=== PATIENT | male | born 1970 | race Caucasian/White ===

== ENCOUNTER 2016-09-16 09:34 | Emergency (ER) | payer MEDICARE, MEDICAID ==
--- NOTE | 2016-09-16 10:42 | ER Document Report ---
HPI - HPI Pain Level: 3 Context: 46 yo male c/o left rib pain. pt lost balance and fell between toilet and tub, hitting left side. hurts to breathe Associated Symptoms: None Exacerbated by: Movement, Deep breathing Relieved by: Denies - ROS Systems Reviewed and Negative: Yes All other systems reviewed and negative Past Medical History - General Information source: Patient - Social History Smoking Status: Never Smoker Frequency of alcohol use: None Drug Abuse: None Family History: Reviewed & Not Pertinent Patient has suicidal ideation: No Patient has homicidal ideation: No - Past Medical History Cardiac Medical History: Reports: Hx Hypercholesterolemia, Hx Hypertension Neurological Medical History: Reports: 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 IN LAST 30 DAYS: No - HEENT HEENT: Atraumatic, Normal ENT Exam, PERRLA - NECK Neck: Normal Inspection, Supple - RESPIRATORY Respiratory: Breath Sounds Normal, No Respiratory Distress, Other - + tenderness to left lateral chest wall. no echymosis.. negative: Rales, Rhonchi , Wheezing O2 Sat by Pulse Oximetry: 96 - CARDIOVASCULAR Cardiovascular: Regular Rate, Regular Rhythm - GI/ABDOMEN Gastrointestinal: Abdomen Soft, Abdomen Non-Tender - BACK Back: Normal Inspection, Abnormal Inspection - NEURO Level of Consciousness: Awake, Alert - DERM Integumentary: Warm, Dry Course - Re-evaluation Re-evalutation: 09/16/16 10:40 xrays are negative for fracture. results reviewed with patient and family. pt stable for discharge - Vital Signs Vital signs: Temp Pulse Resp BP Pulse Ox 97.8 F 70 20 130/81 H 96 09/16/16 09:36 09/16/16 09:36 09/16/16 09:36 09/16/16 09:36 09/16/16 09:36 Discharge - Discharge Clinical Impression: Contusion of rib on left side Qualifiers: Encounter type: initial encounter Qualified Code(s): S20.212A - Contusion of left front wall of thorax, initial encounter Instructions: Rib Contusion ([facility]), Ibuprofen (General) ([facility]), Warm Packs ([facility]) Additional Instructions: Your xrays are negative for fracture Take pain medications as prescribed Encourage deep breathing Follow up with your primary care for any increased pain, shortness of breath or fever Prescriptions: Ibuprofen [Motrin 800 Mg Tablet] 800 mg PO Q6H #20 tablet Referrals: ISRRAEL RUIZ MD [Primary Care Provider] - Follow up as needed
--- NOTE | 2016-09-16 10:48 | RADIOLOGY REPORT (SQ) ---
EXAM DESCRIPTION: RIBS LEFT W/PA CHEST COMPLETED DATE/TIME: 09/16/2016 10:34 am REASON FOR STUDY: fall, rib pain COMPARISON: Chest radiograph 09/27/2015 TECHNIQUE: Frontal view of the chest and additional views of the left ribs acquired. NUMBER OF VIEWS: Three view. LIMITATIONS: None. FINDINGS: FRONTAL CXR: No pneumothorax. No pleural effusion. No atelectasis or infiltrates. RIBS: No displaced rib fractures. No lytic or blastic bony lesions. OTHER: No other significant finding. IMPRESSION: NO PNEUMOTHORAX. NO DISPLACED RIB FRACTURES. COMMENT: SITE OF TRAUMA/COMPLAINT MARKED/STAMP COMPLETED: YES. TECHNICAL DOCUMENTATION: JOB ID: [id number] I [employer]- All Rights Reserved
[2016-09-16 11:00] VITALS: BP 132/78
== END 2016-09-16 10:55 | disposition home or self-care (01) ==
LOC: ER 09:34
DX: S20.212A Contusion of left front wall of thorax, initial encounter (principal); W19.XXXA Unspecified fall, initial encounter; Y92.002 Bathroom of unspecified non-institutional (private) residence as the place of occurrence of the external cause; I10 Essential (primary) hypertension; Z86.73 Personal history of transient ischemic attack (TIA), and cerebral infarction without residual deficits
CPT/HCPCS: 99283

== ENCOUNTER 2016-09-30 17:29 | Emergency (ER) | payer MEDICARE, MEDICAID, OTHER ==
[2016-09-30 17:46] VITALS: BP 111/86
--- NOTE | 2016-09-30 18:36 | ER Document Report ---
HPI - HPI Pain Level: Denies Notes: Patient is a 46-year-old male who presents to the ED complaining of a right- sided rash was back to his abdomen 1 day that is also painful and causes soreness in his back. Patient has a history of brain tumor status post excision as a child, CVAs, short-term memory loss, speech impairment, hypertension. Patient takes tramadol, blood thinner, blood pressure medication. He is accompanied to the ED by his mother. Mother states that he did have chickenpox as a child. He still eating and drink without any problems. Patient takes tramadol twice a day. The pain does not radiate. They have noticed that the rash is blistering with some clear discharge. Denies any headache, fever, URI, sore throat, chest pain, palpitations, syncope , cough, shortness of breath, wheezing, abdominal pain, nausea/vomiting/diarrhea , dysuria, hematuria, loss of control of bowel or bladder, urinary retention, muscle weakness/paralysis that is out of the ordinary. Allergies as listed above. No other significant medical history. - ROS Notes: REVIEW OF SYSTEMS: CONSTITUTIONAL : Denies fever, chills, or sweats. Denies recent illness. EENT: Denies eye, ear, throat, or mouth pain or symptoms. Denies nasal or sinus congestion or discharge. Denies throat, tongue, or mouth swelling or difficulty swallowing. CARDIOVASCULAR: Denies chest pain. Denies palpitations or racing or irregular heart beat. Denies ankle edema. RESPIRATORY: Denies cough, cold, or chest congestion. Denies shortness of breath, difficulty breathing, or wheezing. GASTROINTESTINAL: Denies abdominal pain or distention. Denies nausea, vomiting , or diarrhea. Denies blood in vomitus, stools, or per rectum. Denies black, tarry stools. Denies constipation. GENITOURINARY: Denies difficulty urinating, painful urination, burning, frequency, blood in urine, or discharge. MUSCULOSKELETAL: see hpi SKIN: see hpi NEUROLOGICAL: see hpi ALL OTHER SYSTEMS REVIEWED AND NEGATIVE. Dictation was performed using [employer] voice recognition software - CARDIOVASCULAR Cardiovascular: DENIES: Chest pain - DERM Skin Color: Normal Past Medical History - Social History Smoking Status: Never Smoker Chew tobacco use (# tins/day): No Frequency of alcohol use: None Drug Abuse: None Family History: Reviewed & Not Pertinent Patient has suicidal ideation: No Patient has homicidal ideation: No - Past Medical History Cardiac Medical History: Reports: Hx Hypercholesterolemia, Hx Hypertension Neurological Medical History: Reports: 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 HEAD: Atraumatic, normocephalic. EYES: Pupils equal round and reactive to light, extraocular movements intact, sclera anicteric, conjunctiva are normal. + dysconjugate gaze. ENT: EAC clear b/l. TM's intact b/l without erythema, fluid, or perforation. Nares patent and without discharge. oropharynx clear without exudates. No tonsilar hypertrophy or erythema. Moist mucous membranes. No sinus tenderness. NECK: Normal range of motion, supple without lymphadenopathy. No rigidity. LUNGS: Breath sounds clear to auscultation bilaterally and equal. No wheezes rales or rhonchi. HEART: Regular rate and rhythm without murmurs, rubs, gallops. ABDOMEN: Soft, nontender, nondistended abdomen. No guarding, no rebound. No masses appreciated. Normal bowel sounds present. No CVA tenderness bilaterally. Musculoskeletal: FROM to passive/active. Strength 5+/5. Back: + grouped vesicular rash, erythemic base, clear discharge, unilateral, along approx dermatome T7-8. + tenderness. Wraps around to the abdomen along same dermatome. SLR negative. Extremities: No cyanosis, clubbing, or edema b/l. Peripheral pulses 2+. Capillary refill less than 3 seconds. NEUROLOGICAL: Cranial nerves grossly intact. Normal speech, normal gait. Normal sensory, motor exams PSYCH: Normal mood, normal affect. SKIN: see "Back exam"--consistent with shingles rash - INFECTION CONTROL TRAVEL OUTSIDE OF THE [place] IN LAST 30 DAYS: No - RESPIRATORY O2 Sat by Pulse Oximetry: 94 Course - Re-evaluation Re-evalutation: 09/30/16 18:42 Patient is an afebrile, well-hydrated, 46-year-old male presents the ED with a shingles rash to his right back/abdomen along dermatome T7-8 approximately. Vitals are stable. PE otherwise unremarkable for any focal neurological deficits. Low suspicion for any AAA, cauda equina, spinal abscess, herniated disc causing severe spinal stenosis based on H&P today. I will send him home with Valtrex 1 g 3 times daily 7 days. Conservative measures for symptoms otherwise. Keep the wound covered. Recheck with her PCM in 2-3 days. Return to the ED with any worsening/concerning symptoms otherwise as reviewed in discharge. Patient/mother in agreement with plan. - Vital Signs Vital signs: Temp Pulse Resp BP Pulse Ox 98 F 88 18 111/86 H 94 09/30/16 17:39 09/30/16 17:39 09/30/16 17:39 09/30/16 17:39 09/30/16 17:39 Discharge - Discharge Clinical Impression: Shingles outbreak Qualifiers: Herpes zoster complications: without complications Qualified Code(s): B02.9 - Zoster without complications Condition: Stable Disposition: HOME, SELF-CARE Instructions: Acetaminophen Additional Instructions: Keep the skin clean and covered Take valtrex every 8 hours for 7 days May use his tramadol for pain control tylenol may help avoid being around females Maintain fluid intake Recheck with PCM in 2-3 days Return to the ED with any worsening symptoms and/or development of fever, headache, chest pain, palpitations, syncope, shortness of breath, trouble breathing, abdominal pain, n/v/d, blood in stool/urine, loss of control of bowel /bladder, urinary retention, muscle weakness/paralysis, numbness/tingling, or other worsening symptoms that are concerning to you. Shingles You have shingles. Shingles is caused by the chicken pox virus, The virus has been surviving dormant in a nerve cell since you had chicken pox years ago. The virus has spread down a nerve root to reach the skin. Typically, an band-like area of pain and skin sensitivity develops, then small blisters erupt in the area. Shingles lasts two or three weeks, but sometimes leaves persistent pain. You are contagious -- you can give children chicken pox. But you can't give anyone shingles. Antiviral medicines (such as acyclovir or famciclovir) can help, but the rash usually worsens for about a week. Pain medication is often given if the area hurts. Antihistamines such as Benadryl may be necessary for itching if it does not respond to soda baths and calamine lotion. Sometimes cortisone medicine or nerve-block shots are necessary if pain is severe. If the area remains severely painful as the sores heal, or if you suspect an infection developing in the sores, see your doctor. Prescriptions: Valacyclovir HCl [Valacyclovir] 1,000 mg PO TID #21 tablet Referrals: ZHENG FLORES MD [Primary Care Provider] - Follow up as needed
== END 2016-09-30 18:57 | disposition home or self-care (01) ==
LOC: ER 17:29
DX: B02.9 Zoster without complications (principal); I10 Essential (primary) hypertension; Z86.73 Personal history of transient ischemic attack (TIA), and cerebral infarction without residual deficits; Z79.891 Long term (current) use of opiate analgesic; Z79.899 Other long term (current) drug therapy; Z79.01 Long term (current) use of anticoagulants
CPT/HCPCS: 99283

== ENCOUNTER → 2017-04-09 | Outpatient (CLI) | payer MEDICARE, MEDICAID | LOC: RAD 12:18 | PROVIDERS: ATTEND Internal Medicine | DX: G81.92 Hemiplegia, unspecified affecting left dominant side (principal) ==

== ENCOUNTER → 2017-04-13 | Outpatient (CLI) | payer MEDICARE, MEDICAID ==
--- NOTE | 2017-04-13 11:00 | RADIOLOGY REPORT (SQ) ---
EXAM DESCRIPTION: CT HEAD WITHOUT COMPLETED DATE/TIME: 04/13/2017 10:37 am REASON FOR STUDY: CEREBRAL INFRACTION, UNSPECIFIED COMPARISON: 04/30/2015 TECHNIQUE: Axial images acquired through the brain without intravenous contrast. Images reviewed wi th bone, brain and subdural windows. Images stored on PACS. LIMITATIONS: None. FINDINGS: VENTRICLES: Stable in size and contour with right frontal ventriculostomy catheter in plac e. CEREBRUM: No masses. No hemorrhage. No midline shift. Normal lewis/white matter differentiation. S table areas of chronic microvascular ischemic disease involving the right greater than left basal diomedes glia. Stable dense basal gangliar calcifications. No evidence for acute infarction. CEREBELLUM: No masses. No hemorrhage. No alteration of density. No evidence for acute infarction. EXTRAAXIAL SPACES: No fluid collections. No masses. ORBITS AND GLOBE: No intra- or extraconal masses. Normal contour of globe without masses. CALVARIUM: No fracture. Stable postsurgical change related to ventriculostomy catheter placement PARANASAL SINUSES: No fluid or mucosal thickening. SOFT TISSUES: No mass or hematoma. OTHER: No other significant finding. IMPRESSION: NO ACUTE INTRACRANIAL PROCESS. NO SIGNIFICANT CHANGE FROM PRIOR STUDY. COMMENT: WAS EXAM PERFORMED WITHIN 24 HOURS UPON ARRIVAL TO FACILITY? Yes. TECHNICAL DOCUMENTATION: JOB ID: [id number]
== END ==
LOC: RAD 10:23
PROVIDERS: ATTEND Internal Medicine
DX: I63.9 Cerebral infarction, unspecified (principal)
CPT/HCPCS: 70450

== ENCOUNTER 2017-08-12 14:01 | Emergency (ER) | payer MEDICARE, MEDICAID ==
--- NOTE | 2017-08-12 16:07 | ER Document Report ---
ED Medical Screen (RME) - General Chief Complaint: S/S of Possible Stroke Stated Complaint: POSSIBLE STROKE Time Seen by Provider: 08/12/17 16:00 Notes: RAPID MEDICAL EVALUATION DISCLOSURE I have seen this patient as part of a Rapid Medical Evaluation and, if applicable, placed any initially appropriate orders. The patient will be seen and fully evaluated, including a full history and physical exam, by a provider ( in Main ED or Fast Track) when a room becomes available. 47-year-old male PMH brain tumor (status post resection) here with mother who states he was at therapy approximately 2 hours 45 minutes ago when they noticed he had right-sided facial droop and slurred speech as well as difficulty walking and leg weakness. Mother states he does not normally have these symptoms at baseline. Since then, he has had a waxing/waning of the symptoms. Mother states that he currently does not have the facial droop but does currently have some slurred speech. EXAM Slurred speech noted No facial droop Left upper extremity motor weakness (mother states is baseline) All other extremities 5/5 strength TRAVEL OUTSIDE OF THE [place] IN LAST 30 DAYS: No - Related Data Allergies/Adverse Reactions: GOLDY Inhibitors Allergy (Verified 09/30/16 18:06) angioedema Past Medical History - Social History Chew tobacco use (# tins/day): No Frequency of alcohol use: None Drug Abuse: None - Past Medical History Cardiac Medical History: Reports: Hx Hypercholesterolemia, Hx Hypertension Neurological Medical History: Reports: 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
--- NOTE | 2017-08-12 16:28 | RADIOLOGY REPORT (SQ) ---
EXAM DESCRIPTION: CHEST SINGLE VIEW COMPLETED DATE/TIME: 08/12/2017 4:19 pm REASON FOR STUDY: slurred speech COMPARISON: 09/27/2015 EXAM PARAMETERS: NUMBER OF VIEWS: One view. TECHNIQUE: Single frontal radiographic view of the chest acquired. RADIATION DOSE: NA LIMITATIONS: None. FINDINGS: LUNGS AND PLEURA: No opacities, masses or pneumothorax. No pleural effusion. MEDIASTINUM AND HILAR STRUCTURES: No masses. Contour normal. HEART AND VASCULAR STRUCTURES: Heart normal in size. Normal vasculature. BONES: No acute findings. HARDWARE: None in the chest. OTHER: Shunt catheter right of midline. IMPRESSION: NO ACUTE RADIOGRAPHIC FINDING IN THE CHEST. TECHNICAL DOCUMENTATION: JOB ID: [id number] [employer]- All Rights Reserved Reading location - IP/workstation name: [email or web address]
--- NOTE | 2017-08-12 16:44 | RADIOLOGY REPORT (SQ) ---
EXAM DESCRIPTION: CT HEAD WITHOUT COMPLETED DATE/TIME: 08/12/2017 4:14 pm REASON FOR STUDY: slurred speech COMPARISON: 04/13/2017 TECHNIQUE: Axial images acquired through the brain without intravenous contrast. Images reviewed wi th bone, brain and subdural windows. Additional sagittal and coronal reconstructions were generated. Images stored on PACS. All CT scanners at this facility use dose modulation, iterative reconstruction, and/or weight based d osing when appropriate to reduce radiation dose to as low as reasonably achievable (ALARA). [facility]: Dose Right [facility]: CareDose [facility]: Dose Right [facility]: Teradose 4D [facility]: Smart Egodeus RADIATION DOSE: CT Rad equipment meets quality standard of care and radiation dose reduction techniq ues were employed. CTDIvol: 53.2 mGy. DLP: 1070 mGy-cm. mGy. LIMITATIONS: None. FINDINGS: VENTRICLES: The ventricles remain stable in size and contour. Ventricular shunt catheter is unchanged in position. CEREBRUM: No masses. No hemorrhage. No midline shift. No evidence for acute infarction. Normal gra y/white matter differentiation. There are relative low density areas in the periventricular white ma tter which may be related to small vessel ischemic changes. Stable basal ganglia calcifications are again identified. Postsurgical changes are identified at the level of the left temporal lobe without significant mass effect. CEREBELLUM: No masses. No hemorrhage. No alteration of density. No evidence for acute infarction. EXTRAAXIAL SPACES: No fluid collections. No masses. ORBITS AND GLOBE: No intra- or extraconal masses. Normal contour of globe without masses. CALVARIUM: Post craniotomy changes are identified in the left temporal region which were not present on the previous study PARANASAL SINUSES: No fluid or mucosal thickening. SOFT TISSUES: There is soft tissue swelling in the scalp on the left presumably postsurgical in natur e. OTHER: No other significant finding. IMPRESSION: Postsurgical changes in the left temporal region without significant mass effect. Stabl e ventricles with a ventricular shunt catheter unchanged in position. No hemorrhage no midline shift . Relative low density areas in the periventricular white matter which may be related to small vesse l ischemic changes. Other findings as noted above EVIDENCE OF ACUTE STROKE: NO. COMMENT: Pertinent positive or negative findings of the imaging study reported as a CRITICAL EXAM rubén WONG MD at16:18 on 08/12/2017. Category of Critical Exam: Stroke alert Quality ID # [id number]: Final reports with documentation of one or more dose reduction techniques (e.g., Au tomated exposure control, adjustment of the mA and/or kV according to patient size, use of iterative reconstruction technique) TECHNICAL DOCUMENTATION: JOB ID: [id number] [employer]- All Rights Reserved Reading location - IP/workstation name: [email or web address]
[2017-08-12 17:52] LABS: ABSOLUTE LYMPHOCYTES (AUTO) 0.4 10^3/uL (0.5-4.7); ABSOLUTE MONOCYTES (AUTO) 0.1 10^3/uL (0.1-1.4); ABSOLUTE NEUT (AUTO) 5.5 10^3/uL (1.7-8.2); BASOPHILS % (AUTO) 0.1 % (0-2); EOSINOPHILS % (AUTO) 0.2 % (0-6); HEMATOCRIT 37.9 % (37.9-51.0); HEMOGLOBIN 12.9 g/dL (13.5-17.0); LYMPHOCYTES % (AUTO) 6.5 % (13-45); MEAN CORPUSCULAR HEMOGLOBIN 31.6 pg (27.0-33.4); MEAN CORPUSCULAR HGB CONC 33.9 g/dL (32.0-36.0); MEAN CORPUSCULAR VOLUME 93 fl (80-97); MONOCYTES % (AUTO) 2.2 % (3-13); PLATELET COUNT 161 10^3/uL (150-450); RED BLOOD COUNT 4.06 10^6/uL (4.35-5.55); RED CELL DISTRIBUTION WIDTH 14.8 % (11.5-14.0); TOTAL CELLS COUNTED % (AUTO) 100 %; WHITE BLOOD COUNT 6.1 10^3/uL (4.0-10.5)
[2017-08-12 17:56] LABS: INTERNATIONAL RATION (INR) 0.89; PROTHROMBIN TIME 12.5 SEC (11.4-15.4)
[2017-08-12 17:57] LABS: PARTIAL THROMBOPLASTIN TIME 31.7 SEC (23.5-35.8)
--- NOTE | 2017-08-12 18:08 | EKG REPORT ---
SEVERITY:- BORDERLINE ECG - SINUS RHYTHM LVH BY VOLTAGE : Confirmed by: Alexandru Bush MD 12-Aug-2017 18:07:06
[2017-08-12 18:11] LABS: ALANINE AMINOTRANSFERASE 64 U/L (21-72); ALBUMIN 3.8 g/dL (3.5-5.0); ALKALINE PHOSPHATASE 93 U/L (38-126); ANION GAP 11 (5-19); ASPARTATE AMINO TRANSFERASE 28 U/L (17-59); BILIRUBIN,DIRECT 0.2 mg/dL (0.0-0.4); BILIRUBIN,TOTAL 0.6 mg/dL (0.2-1.3); BLOOD UREA NITROGEN 11 mg/dL (7-20); CALCIUM 8.9 mg/dL (8.4-10.2); CARBON DIOXIDE 34 mmol/L (22-30); CHLORIDE 100 mmol/L (98-107); CREATINE KINASE 43 U/L (55-170); GLUCOSE 123 mg/dL (75-110); SODIUM 144.7 mmol/L (137-145); TOTAL PROTEIN 6.5 g/dL (6.3-8.2)
[2017-08-12] MEDS ORDERED: NORMAL SALINE 1000 ML 1,000 ML IV ONE (18:15)
--- NOTE | 2017-08-12 18:15 | ER Document Report ---
ED General - General Mode of Arrival: Ambulatory Information source: Patient TRAVEL OUTSIDE OF THE [place] IN LAST 30 DAYS: No <ERWIN GARDNER - Last Filed: 08/12/17 22:43> <ELI AHMADI - Last Filed: 08/12/17 23:52> - General Chief Complaint: S/S of Possible Stroke Stated Complaint: POSSIBLE STROKE Time Seen by Provider: 08/12/17 16:00 Notes: Patient is a 47-year-old male that presents to the emergency department today with complaints of generalized weakness. Mother at bedside states the patient was at physical therapy today and was "having difficulty walking". Mom states patient has had recent falls at home. Patient had a recent craniotomy secondary to a benign tumor. Patient denies feeling sick, hip pain, vomiting, diarrhea, urinary symptoms, or cough. (ERWIN GARDNER) - Related Data Allergies/Adverse Reactions: GOLDY Inhibitors Allergy (Verified 09/30/16 18:06) angioedema Past Medical History - General Information source: Patient - Social History Smoking Status: Never Smoker Cigarette use (# per day): No Chew tobacco use (# tins/day): No Frequency of alcohol use: None Drug Abuse: None Lives with: Family Family History: Reviewed & Not Pertinent Patient has suicidal ideation: No Patient has homicidal ideation: No - Past Medical History Cardiac Medical History: Reports: Hx Hypercholesterolemia, Hx Hypertension Neurological Medical History: Reports: 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 - Immunizations Hx Diphtheria, Pertussis, Tetanus Vaccination: Yes <ERWIN GARDNER - Last Filed: 08/12/17 22:43> Review of Systems - Review of Systems Constitutional: See HPI, Weakness EENT: No symptoms reported Cardiovascular: No symptoms reported Respiratory: denies: Cough Gastrointestinal: denies: Abdominal pain, Diarrhea, Vomiting Genitourinary: No symptoms reported Male Genitourinary: No symptoms reported Musculoskeletal: No symptoms reported Skin: No symptoms reported Hematologic/Lymphatic: No symptoms reported Neurological/Psychological: No symptoms reported -: Yes All other systems reviewed and negative <ERWIN GARDNER - Last Filed: 08/12/17 22:43> Physical Exam - Vital signs Interpretation: Hypotensive - General General appearance: Alert In distress: None - HEENT Head: Other - Healing wound to L scalp, CDI Nasal: Normal Mucous membranes: Dry Pharynx: Normal Neck: Normal - Respiratory Respiratory status: No respiratory distress Breath sounds: Normal - Cardiovascular Rhythm: Regular - Abdominal Inspection: Normal Tenderness: Nontender - Extremities General upper extremity: Normal inspection, Normal strength General lower extremity: Normal inspection, Normal strength - Neurological Neuro grossly intact: Yes - at baseline Andrews Coma Scale Eye Opening: Spontaneous Andrews Coma Scale Verbal: Oriented Speech: Normal Motor strength normal: LUE - decreased at baseline, RUE, LLE - decreased at baseline, RLE Additional motor exam normals: Other - L at baseline weakness - Psychological Associated symptoms: Normal affect, Normal mood - Skin Skin Temperature: Warm Skin Moisture: Dry Skin Color: Normal <ELI AHMADI - Last Filed: 08/12/17 23:52> - Vital signs Vitals: Temp Pulse Resp BP Pulse Ox 98.7 F 86 18 100/66 95 08/12/17 14:26 08/12/17 14:26 08/12/17 14:26 08/12/17 14:26 08/12/17 14:26 Course - Laboratory Result Diagrams: 08/12/17 17:40 08/12/17 17:40 <ERWIN GARDNER - Last Filed: 08/12/17 22:43> - Laboratory Result Diagrams: 08/12/17 17:40 08/12/17 17:40 - Diagnostic Test Radiology reviewed: Reports reviewed <ELI AHMADI - Last Filed: 08/12/17 23:52> - Re-evaluation Re-evalutation: 08/12/17 23:49 Patient is a 47-year-old male who comes in with feeling like he might fall over. Patient had a craniotomy in March. There is no evidence on his CT for bleeding, new stroke, or hydrocephalus. No acute findings on blood work or urine. No acute findings on chest x-ray. Patient was given fluids and is no longer orthostatic. Mother states that he is having physical therapy come in because of difficulty walking and being off balance. This is at his baseline since he had the surgery. I am not sure if they understand that the patient is going to have difficulty walking for quite some time due to the removal of a benign brain tumor. Patient does not meet any admission criteria and is able to ambulate at baseline with assistance which she has at home. Patient will be discharged home. Return if any worsening or concerning symptoms. (ELI AHMADI) - Vital Signs Vital signs: Temp Pulse Resp BP Pulse Ox 98.7 F 65 18 110/78 95 08/12/17 14:26 08/12/17 22:09 08/12/17 23:01 08/12/17 23:01 08/12/17 23:01 - Laboratory Laboratory results interpreted by me: 08/12/17 08/12/17 17:40 17:40 RBC 4.06 L Hgb 12.9 L RDW 14.8 H Seg Neutrophils % 91.0 H Lymphocytes % 6.5 L Monocytes % 2.2 L Absolute Lymphocytes 0.4 L Carbon Dioxide 34 H Glucose 123 H Creatine Kinase 43 L Discharge <ERWIN GARDNER - Last Filed: 08/12/17 22:43> <ELI AHMADI - Last Filed: 08/12/17 23:52> - Discharge Clinical Impression: Weakness, Dehydration Condition: Stable Disposition: HOME, SELF-CARE Instructions: Dehydration ([facility]), Weakness ([facility]) Referrals: CARLY WILLIAMSON MD [Primary Care Provider] - Follow up tomorrow Scribe Attestation: 08/12/17 23:52 I personally performed the services described in the documentation, reviewed and edited the documentation which was dictated to the scribe in my presence, and it accurately records my words and actions. (ELI AHMADI) Scribe Documentation - Scribe Written by Belia:: Belia Senior, 08/12/2017 2251 acting as scribe for :: June <ERWIN GARDNER - Last Filed: 08/12/17 22:43>
[2017-08-12 18:25] LABS: CREATINE KINASE MB 0.79 ng/mL (<4.55)
[2017-08-12 18:26] LABS: TROPONIN I < 0.012 ng/mL
[2017-08-12 20:37] LABS: AMORPHOUS SEDIMENT,URINE TRACE /HPF; APPEARANCE,URINE CLOUDY; BILIRUBIN,URINE NEGATIVE (NEGATIVE); COLOR,URINE YELLOW; GLUCOSE, URINE NEGATIVE (NEGATIVE); KETONES,URINE NEGATIVE (NEGATIVE); LEUKOCYTE ESTERASE,URINE NEGATIVE (NEGATIVE); NITRITE,URINE NEGATIVE (NEGATIVE); PROTEIN,URINE NEGATIVE (NEGATIVE); UROBILINOGEN,URINE NEGATIVE mg/dL (<2.0)
[2017-08-12 23:05] VITALS: BP 110/78
== END 2017-08-12 23:13 | disposition home or self-care (01) ==
LOC: ER 14:01
DX: R53.1 Weakness (principal); E86.0 Dehydration; R26.2 Difficulty in walking, not elsewhere classified; I10 Essential (primary) hypertension; Z91.81 History of falling; Z98.2 Presence of cerebrospinal fluid drainage device; Z98.890 Other specified postprocedural states; Z88.8 Allergy status to other drugs, medicaments and biological substances; Z86.73 Personal history of transient ischemic attack (TIA), and cerebral infarction without residual deficits
CPT/HCPCS: 93005; 99285; 96360; 36415; 82553; 82550; 85025; 85610; 85730; 80053; 81001; 84484; 71045; 70450; 93010; J7030

== ENCOUNTER 2017-09-19 13:03 | Emergency (ER) | payer MEDICARE, MEDICAID ==
[2017-09-19] MEDS ORDERED: ACETAMINOPHEN 325 MG TABLET PO ONE (14:00)
[2017-09-19] MEDS ORDERED: ONDANSETRON 4 MG TAB.RAPDIS PO ONE (14:00)
--- NOTE | 2017-09-19 14:02 | ER Document Report ---
ED Medical Screen (RME) - General Chief Complaint: Flank Pain Stated Complaint: STOMACH/FLANK PAIN Time Seen by Provider: 09/19/17 13:58 Notes: RAPID MEDICAL EVALUATION DISCLOSURE I have seen this patient as part of a Rapid Medical Evaluation and, if applicable, placed any initially appropriate orders. The patient will be seen and fully evaluated, including a full history and physical exam, by a provider ( in Main ED or Fast Track) when a room becomes available. 47-year-old male here with complaints of right-sided abdominal and flank pain ongoing for the past 1-2 days. He has had some nausea but no dysuria hematuria diarrhea fevers chills. Mother gave him some tramadol for the pain with not much relief. He has no prior history of kidney stones. Mother is unsure if he still has his appendix. Exam Mild RUQ TTP Moderate RLQ TTP No CVA TTP TRAVEL OUTSIDE OF THE [place] 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
[2017-09-19 14:32] LABS: ABSOLUTE EOSINOPHILS # (AUTO) 0.1 10^3/uL (0.0-0.6); ABSOLUTE LYMPHOCYTES (AUTO) 1.5 10^3/uL (0.5-4.7); ABSOLUTE MONOCYTES (AUTO) 0.6 10^3/uL (0.1-1.4); ABSOLUTE NEUT (AUTO) 5.2 10^3/uL (1.7-8.2); BASOPHILS % (AUTO) 0.6 % (0-2); EOSINOPHILS % (AUTO) 1.6 % (0-6); HEMATOCRIT 40.2 % (37.9-51.0); LYMPHOCYTES % (AUTO) 20.2 % (13-45); MEAN CORPUSCULAR HEMOGLOBIN 31.2 pg (27.0-33.4); MEAN CORPUSCULAR HGB CONC 34.8 g/dL (32.0-36.0); MEAN CORPUSCULAR VOLUME 90 fl (80-97); MONOCYTES % (AUTO) 7.8 % (3-13); PLATELET COUNT 259 10^3/uL (150-450); RED BLOOD COUNT 4.48 10^6/uL (4.35-5.55); RED CELL DISTRIBUTION WIDTH 14.7 % (11.5-14.0); SEGMENTED NEUTROPHILS % (AUTO) 69.8 % (42-78); TOTAL CELLS COUNTED % (AUTO) 100 %; WHITE BLOOD COUNT 7.5 10^3/uL (4.0-10.5)
[2017-09-19 14:53] LABS: APPEARANCE,URINE SLIGHTLY-CLOUDY; BILIRUBIN,URINE NEGATIVE (NEGATIVE); COLOR,URINE STRAW; GLUCOSE, URINE NEGATIVE (NEGATIVE); KETONES,URINE NEGATIVE (NEGATIVE); LEUKOCYTE ESTERASE,URINE NEGATIVE (NEGATIVE); NITRITE,URINE NEGATIVE (NEGATIVE); PROTEIN,URINE NEGATIVE (NEGATIVE); URINE SPECIFIC GRAVITY 1.002; UROBILINOGEN,URINE NEGATIVE mg/dL (<2.0)
[2017-09-19 14:55] LABS: ALANINE AMINOTRANSFERASE 60 U/L (21-72); ALBUMIN 4.4 g/dL (3.5-5.0); ALKALINE PHOSPHATASE 74 U/L (38-126); ANION GAP 10 (5-19); ASPARTATE AMINO TRANSFERASE 50 U/L (17-59); BILIRUBIN,DIRECT 0.3 mg/dL (0.0-0.4); BILIRUBIN,TOTAL 0.6 mg/dL (0.2-1.3); BLOOD UREA NITROGEN 8 mg/dL (7-20); CALCIUM 9.5 mg/dL (8.4-10.2); CARBON DIOXIDE 34 mmol/L (22-30); CHLORIDE 105 mmol/L (98-107); GLUCOSE 125 mg/dL (75-110); LIPASE 66.6 U/L (23-300); POTASSIUM 3.2 mmol/L (3.6-5.0); SODIUM 149.3 mmol/L (137-145); TOTAL PROTEIN 7.7 g/dL (6.3-8.2)
--- NOTE | 2017-09-19 15:04 | RADIOLOGY REPORT (SQ) ---
EXAM DESCRIPTION: CT ABD/PELVIS NO ORAL OR IV COMPLETED DATE/TIME: 09/19/2017 2:39 pm REASON FOR STUDY: RLQ/RUQ pain; eval stone appendicitis etc COMPARISON: None. TECHNIQUE: CT scan of the abdomen and pelvis performed without intravenous or oral contrast. Images reviewed with lung, soft tissue, and bone windows. Reconstructed coronal and sagittal MPR images revi ewed. All images stored on PACS. All CT scanners at this facility use dose modulation, iterative reconstruction, and/or weight based d osing when appropriate to reduce radiation dose to as low as reasonably achievable (ALARA). [facility]: Dose Right [facility]: CareDose [facility]: Dose Right [facility]: Teradose 4D [facility]: Smart [employer] RADIATION DOSE: CT Rad equipment meets quality standard of care and radiation dose reduction techniq ues were employed. CTDIvol: 18.2 mGy. DLP: 1053 mGy-cm.mGy. LIMITATIONS: None. FINDINGS: LOWER CHEST: No significant findings. No nodules or infiltrates. NON-CONTRASTED LIVER, SPLEEN, ADRENALS: Evaluation limited by lack of IV contrast. No identified sign ificant masses. PANCREAS: No masses. No peripancreatic inflammatory changes. GALLBLADDER: No identified stones by CT criteria. No inflammatory changes to suggest cholecystitis. RIGHT KIDNEY AND URETER: No suspicious masses. Assessment limited by lack of IV contrast. No signif icant calcifications. No hydronephrosis or hydroureter. LEFT KIDNEY AND URETER: No suspicious masses. Assessment limited by lack of IV contrast. No signifi cant calcifications. No hydronephrosis or hydroureter. AORTA AND RETROPERITONEUM: No aneurysm. No retroperitoneal masses or adenopathy. BOWEL AND PERITONEAL CAVITY: No obvious masses or inflammatory changes. No free fluid. APPENDIX: For the most part the appendix is normal caliber and there are few bubbles of gas within th e appendiceal lumen. However, adjacent to the appendix is the distal end of the STOPPER GRINDER shunt tubing and associated with the tubing is increased density in the mesenteric and periappendiceal soft tissues. PELVIS, BLADDER, AND ABDOMINAL WALL:No abnormal masses. No free fluid. Bladder normal. BONES: No significant findings. OTHER: No other significant finding. IMPRESSION: 1. THERE IS INFLAMMATORY CHANGE IN THE SOFT TISSUES ADJACENT TO THE APPENDIX. HOWEVER, THIS IS ALSO ADJACENT TO THE DISTAL END OF THE STOPPER GRINDER SHUNT TUBING. THIS COULD REPRESENT EARLY APPENDICITIS AND INCID ENTAL PRESENCE OF TUBING ADJACENT TO THE APPENDIX. ON THE OTHER HAND, THIS COULD REPRESENT FOCAL ACU TE OR CHRONIC INFLAMMATION RELATED TO THE TUBING. CANNOT ENTIRELY EXCLUDE POSSIBILITY OF EARLY ACUTE APPENDICITIS. 2. NO OTHER SIGNIFICANT OR ACUTE PROCESS IN THE ABDOMEN OR PELVIS. COMMENT: Quality ID # [id number]: Final reports with documentation of one or more dose reduction techniques (e.g., Automated exposure control, adjustment of the mA and/or kV according to patient size, use of iterative reconstruction technique) TECHNICAL DOCUMENTATION: JOB ID: [id number] [employer]- All Rights Reserved Reading location - IP/workstation name: [email or web address]
--- NOTE | 2017-09-19 16:02 | ER Document Report ---
ED General - General Chief Complaint: Flank Pain Stated Complaint: STOMACH/FLANK PAIN Time Seen by Provider: 09/19/17 13:58 Mode of Arrival: Ambulatory Information source: Parent Notes: 47-year-old male presents emergency department with complaints of right-sided abdominal pain for 1 day. Patient has a history of a brain tumor that was operated on when the patient was 9 years old. 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 Mom states that she cares for the patient. She states that the patient has complained of abdominal pain today. She states that when she pushed on his abdomen he was very tender to palpation in RUQ and RLQ. Has had gallbladder removed. Still has appendix. Mom states that he has had intermittent abdominal pain in the past month. She states that when she palpates his abdomen he does not usually complain of pain. He has had some intermittent nausea but she denies any diarrhea or constipation, fever, chills. Patient's last meal was at 9 AM. TRAVEL OUTSIDE OF THE [place] IN LAST 30 DAYS: No - HPI Onset: This morning Onset/Duration: Sudden Quality of pain: Sharp Severity: Severe Pain Level: 4 Associated symptoms: Nausea Exacerbated by: Denies Relieved by: Denies Similar symptoms previously: No Recently seen / treated by doctor: No - Related Data Allergies/Adverse Reactions: GOLDY Inhibitors Allergy (Verified 09/19/17 13:56) angioedema Past Medical History - Social History Smoking Status: Never Smoker Chew tobacco use (# tins/day): No Frequency of alcohol use: None Drug Abuse: None Family History: Reviewed & Not Pertinent Patient has suicidal ideation: No Patient has homicidal ideation: No - Past Medical History Cardiac Medical History: Reports: Hx Hypercholesterolemia, Hx Hypertension Neurological Medical History: Reports: 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 - Immunizations Hx Diphtheria, Pertussis, Tetanus Vaccination: Yes Review of Systems - Review of Systems Constitutional: No symptoms reported EENT: No symptoms reported Cardiovascular: No symptoms reported Respiratory: No symptoms reported Gastrointestinal: Abdominal pain, Nausea Genitourinary: No symptoms reported Musculoskeletal: No symptoms reported Skin: No symptoms reported Neurological/Psychological: No symptoms reported -: Yes All other systems reviewed and negative Physical Exam - Vital signs Vitals: Temp Pulse Resp BP Pulse Ox 99.0 F 110 H 20 124/85 95 09/19/17 13:14 09/19/17 13:14 09/19/17 13:14 09/19/17 13:14 09/19/17 13:14 Interpretation: Normal, Tachycardic - Notes Notes: PHYSICAL EXAMINATION: GENERAL: Well-appearing, well-nourished and in no acute distress. HEAD: Atraumatic, normocephalic. EYES: Pupils equal round and reactive to light, extraocular movements intact, sclera anicteric, conjunctiva are normal. ENT: Nares patent, oropharynx clear without exudates. Moist mucous membranes. NECK: Normal range of motion, supple without lymphadenopathy LUNGS: Breath sounds clear to auscultation bilaterally and equal. No wheezes rales or rhonchi. HEART: Regular rate and rhythm without murmurs ABDOMEN: Soft. Tenderness to palpation in the RUQ and RLQ. No rebound. No guarding. Normal active bowel sounds. Musculoskeletal: Normal range of motion, no pitting or edema. No cyanosis. NEUROLOGICAL: Cranial nerves grossly intact. Normal speech, normal gait. Normal sensory, motor exams PSYCH: Normal mood, normal affect. SKIN: Warm, Dry, normal turgor, no rashes or lesions noted. Course - Re-evaluation Re-evalutation: 09/19/17 16:[address] Paniagua. He will come to the ED to evaluate the patient and possibly take the patient to the OR. Zosyn ordered. 09/19/17 16:37 Dr. Paniagua reviewed the CT scan. No inflammation around the appendix. He sees inflammation surrounding the VQ shunt. He feels with a normal WBC the patient probably has shunt related inflammation. He feels the patient should be transferred back to [place] where his neurosurgeon is available. Discussed plan with the mother. She is requesting transfer to [place]. 09/19/17 17:48 I spoke with the neurosurgeon on-call, Dr. Ojeda. He's agreeable with transfer. Will transfer ER to ER. Patient's vitals are stable. Will arrange transfer. 09/19/17 22:54 EMS arrived to transport patient. He is clinically stable. - Vital Signs Vital signs: Temp Pulse Resp BP Pulse Ox 98.1 F 110 H 15 123/83 96 09/19/17 20:01 09/19/17 13:14 09/19/17 21:01 09/19/17 21:01 09/19/17 21:01 - Laboratory Result Diagrams: 09/19/17 14:15 09/19/17 14:15 Laboratory results interpreted by me: 09/19/17 09/19/17 14:15 14:15 RDW 14.7 H Sodium 149.3 H Potassium 3.2 L Carbon Dioxide 34 H Glucose 125 H Discharge - Discharge Clinical Impression: Appendicitis Qualifiers: Appendicitis type: acute appendicitis Acute appendicitis type: unspecified acute appendicitis type Qualified Code(s): K35.80 - Unspecified acute appendicitis Condition: Stable Disposition: [facility] Referrals: CARLY WILLIAMSON MD [Primary Care Provider] - Follow up as needed
[2017-09-19] MEDS ORDERED: PIPERACILLIN/TAZOBACTAM 3.375 GM VIAL IV ONE (16:05)
[2017-09-19] MEDS ORDERED: FENTANYL CITRATE INJ/PF 100 MCG/2 ML AMPUL IV ONE ×2 (16:13→22:47)
[2017-09-19] MEDS ORDERED: NORMAL SALINE 1000 ML 1,000 ML IV ONE (16:33)
[2017-09-19 23:04] VITALS: BP 123/86
== END 2017-09-19 23:15 | disposition short-term general hospital (02) ==
LOC: ER 13:03
DX: K35.80 Unspecified acute appendicitis (principal); R10.9 Unspecified abdominal pain; R10.811 Right upper quadrant abdominal tenderness; R10.812 Left upper quadrant abdominal tenderness; R11.0 Nausea; I10 Essential (primary) hypertension; Z98.2 Presence of cerebrospinal fluid drainage device; Z90.49 Acquired absence of other specified parts of digestive tract; Z88.8 Allergy status to other drugs, medicaments and biological substances
CPT/HCPCS: 96376; 99285; 96361; 96375; 96365; 36415; 87040; 83690; 85025; 80053; 81001; 74176; A9270 ×2; J3010; J7030; J2543; S0119

== ENCOUNTER 2018-04-06 10:46 | Inpatient (IN) | payer MEDICARE, MEDICAID ==
--- NOTE | 2018-04-06 11:09 | RADIOLOGY REPORT (SQ) ---
EXAM DESCRIPTION: CT HEAD WITHOUT COMPLETED DATE/TIME: 04/06/2018 10:57 am REASON FOR STUDY: difficulty ambulating COMPARISON: 08/12/2017 TECHNIQUE: Axial images acquired through the brain without intravenous contrast. Images reviewed wi th bone, brain and subdural windows. Additional sagittal and coronal reconstructions were generated. Images stored on PACS. All CT scanners at this facility use dose modulation, iterative reconstruction, and/or weight based d osing when appropriate to reduce radiation dose to as low as reasonably achievable (ALARA). [facility]: Dose Right [facility]: CareDose [facility]: Dose Right [facility]: Teradose 4D [facility]: Smart [employer] RADIATION DOSE: CT Rad equipment meets quality standard of care and radiation dose reduction techniq ues were employed. CTDIvol: 48.7 mGy. DLP: 1029 mGy-cm. mGy. LIMITATIONS: None. FINDINGS: VENTRICLES: Normal size and contour. CEREBRUM: No masses. No hemorrhage. No midline shift. No evidence for acute infarction. Normal gra y/white matter differentiation. No areas of low density in the white matter. CEREBELLUM: No masses. No hemorrhage. No alteration of density. No evidence for acute infarction. EXTRAAXIAL SPACES: No fluid collections. No masses. ORBITS AND GLOBE: No intra- or extraconal masses. Normal contour of globe without masses. CALVARIUM: Prior left craniotomy. PARANASAL SINUSES: No fluid or mucosal thickening. SOFT TISSUES: No mass or hematoma. OTHER: No other significant finding. IMPRESSION: No acute intracranial process EVIDENCE OF ACUTE STROKE: NO. COMMENT: Pertinent positive or negative findings of the imaging study reported as a CRITICAL EXAM t o ER PROVIDER at11:02 on 04/06/2018. Category of Critical Exam: Stroke alert Quality ID # [id number]: Final reports with documentation of one or more dose reduction techniques (e.g., Au tomated exposure control, adjustment of the mA and/or kV according to patient size, use of iterative reconstruction technique) TECHNICAL DOCUMENTATION: JOB ID: [id number]- All Rights Reserved Reading location - IP/workstation name: [email or web address]
[2018-04-06 11:23] LABS: ABSOLUTE EOSINOPHILS # (AUTO) 0.2 10^3/uL (0.0-0.6); ABSOLUTE LYMPHOCYTES (AUTO) 1.5 10^3/uL (0.5-4.7); ABSOLUTE MONOCYTES (AUTO) 0.6 10^3/uL (0.1-1.4); ABSOLUTE NEUT (AUTO) 3.4 10^3/uL (1.7-8.2); BASOPHILS % (AUTO) 0.5 % (0-2); EOSINOPHILS % (AUTO) 3.1 % (0-6); HEMATOCRIT 42.4 % (37.9-51.0); HEMOGLOBIN 14.8 g/dL (13.5-17.0); LYMPHOCYTES % (AUTO) 26.5 % (13-45); MEAN CORPUSCULAR HEMOGLOBIN 30.5 pg (27.0-33.4); MEAN CORPUSCULAR VOLUME 87 fl (80-97); MONOCYTES % (AUTO) 9.6 % (3-13); PLATELET COUNT 245 10^3/uL (150-450); RED BLOOD COUNT 4.86 10^6/uL (4.35-5.55); RED CELL DISTRIBUTION WIDTH 14.7 % (11.5-14.0); SEGMENTED NEUTROPHILS % (AUTO) 60.3 % (42-78); TOTAL CELLS COUNTED % (AUTO) 100 %; WHITE BLOOD COUNT 5.7 10^3/uL (4.0-10.5)
[2018-04-06 11:24] LABS: INTERNATIONAL RATION (INR) 0.94
[2018-04-06 11:25] LABS: PARTIAL THROMBOPLASTIN TIME 36.5 SEC (23.5-35.8)
--- NOTE | 2018-04-06 11:34 | RADIOLOGY REPORT (SQ) ---
EXAM DESCRIPTION: CHEST SINGLE VIEW COMPLETED DATE/TIME: 04/06/2018 11:23 am REASON FOR STUDY: difficulty ambulating COMPARISON: 09/27/2015 EXAM PARAMETERS: NUMBER OF VIEWS: One view. TECHNIQUE: Single frontal radiographic view of the chest acquired. RADIATION DOSE: NA LIMITATIONS: None. FINDINGS: LUNGS AND PLEURA: No opacities, masses or pneumothorax. No pleural effusion. MEDIASTINUM AND HILAR STRUCTURES: No masses. Contour normal. HEART AND VASCULAR STRUCTURES: Heart normal in size. Normal vasculature. BONES: No acute findings. HARDWARE: None in the chest. OTHER: No other significant finding. IMPRESSION: NO ACUTE RADIOGRAPHIC FINDING IN THE CHEST. TECHNICAL DOCUMENTATION: JOB ID: [id number] [employer]- All Rights Reserved Reading location - IP/workstation name: [email or web address]
[2018-04-06 11:44] LABS: ALANINE AMINOTRANSFERASE 57 U/L (21-72); ALBUMIN 4.8 g/dL (3.5-5.0); ALKALINE PHOSPHATASE 78 U/L (38-126); ANION GAP 8 (5-19); ASPARTATE AMINO TRANSFERASE 44 U/L (17-59); BILIRUBIN,DIRECT 0.1 mg/dL (0.0-0.4); BILIRUBIN,TOTAL 0.9 mg/dL (0.2-1.3); BLOOD UREA NITROGEN 13 mg/dL (7-20); CALCIUM 9.6 mg/dL (8.4-10.2); CARBON DIOXIDE 33 mmol/L (22-30); CHLORIDE 104 mmol/L (98-107); CREATINE KINASE 206 U/L (55-170); GLUCOSE 119 mg/dL (75-110); POTASSIUM 3.5 mmol/L (3.6-5.0); SODIUM 144.6 mmol/L (137-145); TOTAL PROTEIN 8.1 g/dL (6.3-8.2)
--- NOTE | 2018-04-06 11:44 | ER Document Report ---
ED General - General Information source: Patient, Parent TRAVEL OUTSIDE OF THE [place] 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 Mom states during all 3. Patient has playing on his back. Personally was last night at 2130. Patient fell backwards in the bathroom. Thanks for all happened at 0500 this morning with the last one happening at 0930 this morning. Mom states that when the patient stands he seemed to become weak, like shaking, and that he would fall. Mom states the patient had left sided weakness prior to arrival which has since resolved. Patient does have some baseline left sided weakness from "multiple strokes" that the mom reports occurred after the chemo and radiation began at age 9. (ERWIN GARDNER) - Related Data Allergies/Adverse Reactions: GOLDY Inhibitors Allergy (Verified 04/06/18 11:22) angioedema bee stings Allergy (Uncoded 04/06/18 11:22) Past Medical History - Social History Smoking Status: Never Smoker Chew tobacco use (# tins/day): No Frequency of alcohol use: None Drug Abuse: None Family History: Reviewed & Not Pertinent Patient has suicidal ideation: No Patient has homicidal ideation: No - Past Medical History Cardiac Medical History: Reports: Hx Hypercholesterolemia, Hx Hypertension Neurological Medical History: Reports: 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 Renal/ Medical History: Denies: Hx Peritoneal Dialysis Infectious Medical History: Denies: Hx MRSA Past Surgical History: Reports: Hx Cholecystectomy, Hx Neurologic Surgery - Brain tumor removal, Hx HEALTH ANALYST Shunt - Immunizations Hx Diphtheria, Pertussis, Tetanus Vaccination: Yes <ERWIN GARDNER - Last Filed: 04/06/18 15:18> Review of Systems - Review of Systems EENT: Difficulty swallowing - Patient has been evaluated by physical therapy for his swallowing disorder. <LEIDA SUE - Last Filed: 04/06/18 15:30> Physical Exam <ERWIN GARDNER - Last Filed: 04/06/18 15:18> - Vital signs Vitals: Temp Pulse Resp BP Pulse Ox 98.3 F 100 18 128/87 H 93 04/06/18 11:00 04/06/18 11:00 04/06/18 11:00 04/06/18 11:00 04/06/18 11:00 - Notes Notes: Physical Exam: General: Alert, baseline interaction per mother at bedside, smiles but does not say much, follows commands, hard of hearing at baseline. HEENT: Normocephalic. Small superficial abrasion over nasal bridge. PERRL. Extraocular movements intact. Oropharynx clear. Left eye drooping. Neck: Supple. Non-tender. Respiratory: No respiratory distress. Clear and equal breath sounds bilaterally. Left anterior chest tenderness with palpation. Cardiovascular: Regular rate and rhythm. Abdominal: Normal Inspection. Non-tender. No distension. Normal Bowel Sounds. Back: Non-tender. No deformity or step off. Extremities: Moves all four extremities. Upper extremities: 4/5 assistant media buyer strength on the left, 5/5 assistant media buyer strength on the right. Chronic swelling of the left hand. Lower extremities: 5/5 strength in bilateral lower extremities. No edema. Normal ROM. Neurological: see general Skin: Warm. Dry. Normal color. (ERWIN GARDNER) Course - Laboratory Result Diagrams: 04/06/18 11:08 04/06/18 11:08 <ERWIN GARDNER - Last Filed: 04/06/18 15:18> - Laboratory Result Diagrams: 04/06/18 11:08 04/06/18 11:08 - Diagnostic Test Radiology reviewed: Image reviewed, Reports reviewed - The CT scan of the brain does not show any acute process. It does show that the HEALTH ANALYST shunt has been removed since the last time he had a scan here in July 2017. - EKG Interpretation by Ct EKG shows normal: Sinus rhythm, [place], Intervals, QRS Complexes. abnormal: ST-T Waves - Nonspecific lateral T abnormalities Rate: Normal - 94 Rhythm: NSR [place]/QRS: Left axis deviation - Consults Dr. Valerio Time consulted: 14:15 Consulted provider: will come to ER <LEIDA SUE - Last Filed: 04/06/18 15:30> - Re-evaluation Re-evalutation: 04/06/18 14:30 I eventually had the patient sit up, and then stand up. He did have some difficulty getting to the upright position, but this may be because of his obesity. After the patient was standing upright, I had him attempt to walk. He lifted his left foot and went forward with it, but seemed hesitant to set it down, it was shaking, and when he did place it he just seemed like he would fall if he put significant weight on that extremity. Due to his large size, he was assi sted back onto the stretcher to prevent another fall. The mother states that he normally is able to get up and walk around on his own, that he occasionally uses a walker. On witnessing how he tried to walk at this time, the mother states that this is definitely not normal for him. 04/06/18 15:12 The patient did not have any new neurological deficits based on during the exam in front of his mother first arrived. He has known chronic neurological deficits. The more pronounced facial motor weakness his mother noticed at home earlier in the day, had resolved by the time he came to the emergency room. For these reasons the patient is not a TPA candidate. (LEIDA SUE) - Vital Signs Vital signs: Temp Pulse Resp BP Pulse Ox 98.3 F 92 22 H 131/87 H 95 04/06/18 11:00 04/06/18 14:46 04/06/18 14:46 04/06/18 14:46 04/06/18 14:46 - Laboratory Laboratory results interpreted by me: 04/06/18 04/06/18 04/06/18 11:08 11:08 11:08 RDW 14.7 H APTT 36.5 H Potassium 3.5 L Carbon Dioxide 33 H Glucose 119 H Creatine Kinase 206 H Discharge <ERWIN GARDNER - Last Filed: 04/06/18 15:18> - Discharge Admitting Provider: Hospitalist Unit Admitted: Medical Floor <LEIDA SUE - Last Filed: 04/06/18 15:30> - Discharge Clinical Impression: Frequent falls, Left leg weakness, Gait disturbance Laceration of nose Qualifiers: Encounter type: initial encounter Qualified Code(s): S01.21XA - Laceration without foreign body of nose, initial encounter Condition: Stable Disposition: ADMITTED INPATIENT Scribe Attestation: 04/06/18 14:30 I personally performed the services described in the documentation, reviewed and edited the documentation which was dictated to the scribe in my presence, and it accurately records my words and actions. (LEIDA SUE)
[2018-04-06 11:53] LABS: CREATINE KINASE MB 2.24 ng/mL (<4.55); TROPONIN I < 0.012 ng/mL
[2018-04-06] MEDS ORDERED: ACETAMINOPHEN 325 MG TABLET PO PRN (15:57)
--- NOTE | 2018-04-06 16:38 | PDOC H&P ---
History of Present Illness Admission Date/PCP: 04/06/18 14:51 CARRINGTON DOUGLAS PA-C Patient complains of: Patient experienced multiple falls and left facial droop at home History of Present Illness: ROGELIO KEITH is a 47 year old male with a very complex neurologic history. He had a brain tumor at 9 years old. He underwent radiation therapy. He had subsequent resection. He required a WET PRIMER POWDER BLENDER shunt. His WET PRIMER POWDER BLENDER shunt was recently removed several months ago. There is a new brain tumor noted. The patient's mother reports that generally he is steady on his feet. Late last night and then twice this morning the patient fell. Once hitting his nose twice falling b ack to his his head. He denies headache. By the time he arrived at the emergency department the left facial droop resolved. The patient did not trip and fall. He states that his legs felt weak. He did not have syncope. Imaging was performed that showed no new cerebral lesions and no subarachnoid hemorrhage. The patient is still unsteady on his feet and will be admitted for observation. Past Medical History Cardiac Medical History: Reports: Hyperlipidema, Hypertension Pulmonary Medical History: Reports: None EENT Medical History: Reports: None Neurological Medical History: Reports: Ischemic CVA Endocrine Medical History: Reports: Obesity Denies: Diabetes Mellitus Type 2, Hypothyroidism Renal/ Medical History: Denies: Chronic Kidney Disease Malignancy Medical History: Reports: Brain Cancer GI Medical History: Denies: Cirrhosis, Diverticulitis, Gastroesophageal Reflux Disease Musculoskeltal Medical History: Denies: Fibromyalgia Skin Medical History: Denies: Eczema Psychiatric Medical History: Denies: Alcohol Dependency, Substance Abuse, Tobacco Dependency Traumatic Medical History: Reports: None Hematology: Reports: None Infectious Medical History: Denies: Methicillin-Resistant Staph Aureus Past Surgical History Past Surgical History: Reports: Cholecystectomy, Other - Neurosurgery Social History Information Source: Patient, Parent Lives with: Family Smoking Status: Never Smoker Frequency of Alcohol Use: None Hx Recreational Drug Use: No Hx Prescription Drug Abuse: No - Advance Directive Resuscitation Status: Do Not Resuscitate Surrogate healthcare decision maker:: Patient's mother confirmed the status. Family History Family History: CAD, DM, Hyperlipidemia, Hypertension Parental Family History Reviewed: Yes Children Family History Reviewed: Yes Sibling(s) Family History Reviewed.: Yes Medication/Allergy Home Medications: Aspirin/Dipyridamole [Aspirin-Dipyridam ER 25-200 mg] 1 each PO BID #60 cpmp.12hr 04/30/15 Atorvastatin Calcium 20 mg PO DAILY #30 tablet 04/30/15 Hydrochlorothiazide 25 mg PO DAILY #30 tablet 04/30/15 Amlodipine Besylate [Norvasc 10 mg Tablet] 10 mg PO DAILY #30 tablet 09/29/15 Amlodipine Besylate [Norvasc 5 mg Tablet] 10 mg PO DAILY #30 tablet 09/29/15 Famotidine [Pepcid 20 mg Tablet] 20 mg PO BID #12 tablet 09/29/15 Methylprednisolone [Medrol Dosepack (4 mg/Tab) 21 Tab/Dosepak] 4 mg PO ASDIR PRN #21 tab.ds.pk 09/29/15 Ibuprofen [Motrin 800 Mg Tablet] 800 mg PO Q6H #20 tablet 09/16/16 Valacyclovir HCl [Valacyclovir] 1,000 mg PO TID #21 tablet 09/30/16 Allergies/Adverse Reactions: GOLDY Inhibitors Allergy (Verified 04/06/18 11:22) angioedema bee stings Allergy (Uncoded 04/06/18 11:22) Review of Systems Constitutional: ABSENT: anorexia, fever(s), headache(s), night sweats Nose, Mouth, and Throat: ABSENT: mouth pain, sore throat Cardiovascular: ABSENT: chest pain, edema, palpitations Respiratory: ABSENT: cough, dyspnea Gastrointestinal: ABSENT: constipation, diarrhea, heartburn Genitourinary: ABSENT: hematuria Integumentary: ABSENT: lesions Neurological: PRESENT: focal weakness - Left-sided weakness from previous stroke, lack of coordination - Chronic on left from old stroke. Slight ataxia with gait and right arm. Psychiatric: PRESENT: depression Endocrine: ABSENT: cold intolerance, heat intolerance Hematologic/Lymphatic: ABSENT: easy bleeding, easy bruising Allergic/Immunologic: PRESENT: seasonal rhinorrhea Physical Exam Vital Signs: Temp Pulse Resp BP Pulse Ox 98.3 F 92 15 113/88 H 93 04/06/18 11:00 04/06/18 14:46 04/06/18 15:01 04/06/18 15:01 04/06/18 15:00 Intake & Output 04/05/18 04/06/18 04/07/18 06:59 06:59 06:59 Weight 127 kg General appearance: PRESENT: no acute distress, morbidly obese - BMI 45, well-developed Eye exam: PRESENT: conjunctiva pink. ABSENT: EOMI - Left eye limited to midline when moving medially. Right extraocular muscles seem intact. Ear exam: PRESENT: normal external ear exam Mouth exam: PRESENT: dry mucosa Respiratory exam: PRESENT: clear to auscultation carol, symmetrical, unlabored. ABSENT: crackles, rales, stridor, wheezes Cardiovascular exam: PRESENT: RRR, +S1, +S2 GI/Abdominal exam: PRESENT: normal bowel sounds, soft. ABSENT: distended, tenderness Rectal exam: PRESENT: deferred Extremities exam: ABSENT: pedal edema Neurological exam: PRESENT: alert, awake, oriented to person, oriented to place, oriented to situation, abnormal gait, ataxia Psychiatric exam: PRESENT: appropriate affect. ABSENT: agitated, anxious Focused psych exam: ABSENT: pressured speech, restlessness Results Laboratory Results: 04/06/18 11:08 04/06/18 11:08 04/06/18 04/06/18 11:08 11:08 WBC 5.7 RBC 4.86 Hgb 14.8 Hct 42.4 MCV 87 MCH 30.5 MCHC 35.0 RDW 14.7 H Plt Count 245 Seg Neutrophils % 60.3 Lymphocytes % 26.5 Monocytes % 9.6 Eosinophils % 3.1 Basophils % 0.5 Absolute Neutrophils 3.4 Absolute Lymphocytes 1.5 Absolute Monocytes 0.6 Absolute Eosinophils 0.2 Absolute Basophils 0.0 Sodium 144.6 Potassium 3.5 L Chloride 104 Carbon Dioxide 33 H Anion Gap 8 BUN 13 Creatinine 0.90 Est GFR ( Amer) > 60 Est GFR (Non-Af Amer) > 60 Glucose 119 H Calcium 9.6 Total Bilirubin 0.9 AST 44 ALT 57 Alkaline Phosphatase 78 Total Protein 8.1 Albumin 4.8 04/06/18 04/06/18 11:08 11:08 Creatine Kinase 206 H CK-MB (CK-2) 2.24 Troponin I < 0.012 Impressions: Chest X-Ray 04/06/18 10:51 IMPRESSION: NO ACUTE RADIOGRAPHIC FINDING IN THE CHEST. Head CT 04/06/18 10:51 IMPRESSION: No acute intracranial process EVIDENCE OF ACUTE STROKE: NO. Assessment & Plan - Diagnosis (1) Frequent falls Is this a current diagnosis for this admission?: Yes Plan: The patient fell 3 times. He hit his head twice and his nose once. There is some residual left-sided weakness from an old stroke but the falls are different from the patient's baseline CT scan of the head showed no acute changes. Patient will be admitted and physical and occupational therapy will see the patient. The patient is not on any seizure medications despite several surgeries and a remaining tumor. I will order an EEG to look for possible atypical seizure activity. (2) Gait disturbance Is this a current diagnosis for this admission?: Yes Plan: At home he walks without the use of a walker. Physical therapy will see him. No acute changes noted on CT scan. He did have a WET PRIMER POWDER BLENDER shunt in place that was recently removed. (3) Left leg weakness Is this a current diagnosis for this admission?: Yes Plan: Physical therapy to see patient. (4) Brain tumor Is this a current diagnosis for this admission?: Yes Plan: The patient still has a single brain tumor. No surgery planned at this time. (5) Late effect of ischemic cerebral stroke Is this a current diagnosis for this admission?: Yes Plan: The patient has had multiple strokes in the past. He is on Aggrenox. This admission does not present as a stroke. Unsure of the etiology. We will have therapy see the patient as noted above. - Time Time Spent: 50 to 70 Minutes Medications reviewed and adjusted accordingly: Yes
--- NOTE | 2018-04-06 16:48 | EKG REPORT ---
SEVERITY:- ABNORMAL ECG - SINUS RHYTHM BORDERLINE LEFT AXIS DEVIATION NONSPECIFIC T ABNORMALITIES, LATERAL LEADS : Confirmed by: Alexandru Bush MD 06-Apr-2018 16:47:10
[2018-04-06] MEDS: ASPIRIN/DIPYRIDAMOLE 25-200 MG 1 CAP.SR CPMP.12HR PO SCH (18:57)
[2018-04-07 07:02] LABS: ABSOLUTE EOSINOPHILS # (AUTO) 0.2 10^3/uL (0.0-0.6); ABSOLUTE LYMPHOCYTES (AUTO) 1.7 10^3/uL (0.5-4.7); ABSOLUTE MONOCYTES (AUTO) 0.5 10^3/uL (0.1-1.4); ABSOLUTE NEUT (AUTO) 3.7 10^3/uL (1.7-8.2); BASOPHILS % (AUTO) 0.5 % (0-2); EOSINOPHILS % (AUTO) 3.1 % (0-6); HEMATOCRIT 39.7 % (37.9-51.0); HEMOGLOBIN 13.9 g/dL (13.5-17.0); LYMPHOCYTES % (AUTO) 28.2 % (13-45); MEAN CORPUSCULAR HEMOGLOBIN 30.4 pg (27.0-33.4); MEAN CORPUSCULAR HGB CONC 34.9 g/dL (32.0-36.0); MEAN CORPUSCULAR VOLUME 87 fl (80-97); MONOCYTES % (AUTO) 8.9 % (3-13); PLATELET COUNT 202 10^3/uL (150-450); RED BLOOD COUNT 4.56 10^6/uL (4.35-5.55); RED CELL DISTRIBUTION WIDTH 14.3 % (11.5-14.0); SEGMENTED NEUTROPHILS % (AUTO) 59.3 % (42-78); TOTAL CELLS COUNTED % (AUTO) 100 %; WHITE BLOOD COUNT 6.2 10^3/uL (4.0-10.5)
[2018-04-07 07:27] LABS: ANION GAP 9 (5-19); BLOOD UREA NITROGEN 11 mg/dL (7-20); CALCIUM 8.9 mg/dL (8.4-10.2); CARBON DIOXIDE 31 mmol/L (22-30); CHLORIDE 104 mmol/L (98-107); GLUCOSE 103 mg/dL (75-110); POTASSIUM 3.5 mmol/L (3.6-5.0); SODIUM 143.8 mmol/L (137-145)
--- NOTE | 2018-04-07 08:17 | Physician Advisory Note ---
Physician Advisor ProgressNote .: Pursuant to the plan for [facility], I have reviewed the medical record for this patient. Physician Advisor Statement: Please consider documenting, if you agree: 1. "freq falls, possibly due to " (?sz.s, ?acute cerebrovascular insufficiency, ...?) 2. "(acute/chr) hypoxemia as low as 86% overnight, with bradypnea to 10, suspect due to " (?NONI, ?obesity hypoventil synd, ?sz.s, ...?) - If pt has had increased work of breathing associated with this hypoxemia, please document that, & may then consider dx "Ac Resp Failure". 3. Medical necessity: if pt is felt not safe for d/c later today, please document reasons/concerns, & may be appropriate for change to INpatient status at that point. Status: Morbidly obese (BMI 45) Medicare pt w/complex hx, approp'ly brought in as Obs status initially for falls/gait disturbance of uncertain etiol. - See above. Thanks! CK
[2018-04-07] MEDS: ATORVASTATIN CALCIUM 20 MG TABLET PO SCH (10:26)
[2018-04-07] MEDS: ASPIRIN/DIPYRIDAMOLE 25-200 MG 1 CAP.SR CPMP.12HR PO SCH ×2 (10:26→17:31)
[2018-04-07] MEDS: SERTRALINE HCL 50 MG TABLET PO SCH (10:26)
[2018-04-07] MEDS: CETIRIZINE 10 MG TABLET PO SCH (10:26)
[2018-04-07] MEDS: ENOXAPARIN SODIUM INJ 40 MG/0.4 ML DISP.SYRIN SUBCUT SCH (10:27)
[2018-04-07] MEDS: AMLODIPINE BESYLATE 5 MG TABLET PO SCH (10:28)
--- NOTE | 2018-04-07 14:22 | EEG PRO FEE REPORT ---
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 This EEG was requested for new onset falls. EEG Interpretation This EEG was recorded in the awake and minimal drowsy states. The EEG has significant muscle artifact throughout the recording. The awake EEG is characterized by an attenuated background without a noted posterior dominant rhythm. There was EKG artifact. Minimal drowsiness is characterized by slowing of the background rhythms. Photic stimulation resulted in no significant changes. There were no epileptiform abnormalities. The EKG showed a regular rhythm. Left leg shaking was noted without an EEG correlate. EEG Impression This EEG was infiltrated with significant artifact that impaired interpretation. However brief periods noted an attenuated, normal EEG in the awake and minimal drowsy states including during left leg shaking. INTERPRETING PHYSICIAN: CHARLES ANDREWS M.D. /: MTEFDEBORAH TT: [id number] ID: [id number] /: [id number] TD: [id number] JOB: [id number] cc:Disha LEON M.D. ENRICO versace, MD > [facility]
--- NOTE | 2018-04-07 16:51 | PDOC PROGRESS REPORT ---
Subjective Progress Note for:: 04/07/18 Subjective:: Patient was admitted with frequent falls possibly due to his history of brain injury following brain tumors. Reason For Visit: MULTIPLE FALLS, HISTORY OF BRAIN TUMORS Physical Exam Vital Signs: Temp Pulse Resp BP Pulse Ox 98.3 F 79 20 105/58 L 89 L 04/06/18 11:00 04/07/18 14:00 04/07/18 08:00 04/07/18 07:01 04/07/18 08:00 Intake & Output 04/06/18 04/07/18 04/08/18 06:59 06:59 06:59 Intake Total 240 Output Total 230 Balance 10 Weight 127 kg General appearance: PRESENT: no acute distress, morbidly obese, other - chronically ill looking Head exam: PRESENT: atraumatic Mouth exam: PRESENT: moist Respiratory exam: PRESENT: clear to auscultation carol. ABSENT: rales, rhonchi, wheezes Cardiovascular exam: PRESENT: +S1, +S2 Pulses: PRESENT: normal dorsalis pedis pul GI/Abdominal exam: PRESENT: normal bowel sounds Rectal exam: PRESENT: deferred Musculoskeletal exam: PRESENT: ambulatory - with assist device Neurological exam: PRESENT: alert, awake, oriented to time, oriented to situation, abnormal gait, motor sensory deficit, other - dysarthria Psychiatric exam: PRESENT: unusual affect Results Laboratory Results: 04/07/18 06:23 04/07/18 06:23 04/07/18 04/07/18 06:23 06:23 WBC 6.2 RBC 4.56 Hgb 13.9 Hct 39.7 MCV 87 MCH 30.4 MCHC 34.9 RDW 14.3 H Plt Count 202 Seg Neutrophils % 59.3 Lymphocytes % 28.2 Monocytes % 8.9 Eosinophils % 3.1 Basophils % 0.5 Absolute Neutrophils 3.7 Absolute Lymphocytes 1.7 Absolute Monocytes 0.5 Absolute Eosinophils 0.2 Absolute Basophils 0.0 Sodium 143.8 Potassium 3.5 L Chloride 104 Carbon Dioxide 31 H Anion Gap 9 BUN 11 Creatinine 0.78 Est GFR ( Amer) > 60 Est GFR (Non-Af Amer) > 60 Glucose 103 Calcium 8.9 Magnesium 2.3 04/06/18 04/06/18 04/06/18 11:08 11:08 18:05 Creatine Kinase 206 H 264 H CK-MB (CK-2) 2.24 Troponin I < 0.012 Impressions: Chest X-Ray 04/06/18 10:51 IMPRESSION: NO ACUTE RADIOGRAPHIC FINDING IN THE CHEST. Head CT 04/06/18 10:51 IMPRESSION: No acute intracranial process EVIDENCE OF ACUTE STROKE: NO. Assessment & Plan - Diagnosis (1) Frequent falls Is this a current diagnosis for this admission?: Yes (2) Gait disturbance Is this a current diagnosis for this admission?: Yes Plan: Likely from underlying brain tumor history. (3) Morbid obesity with BMI of 45.0-49.9, adult Is this a current diagnosis for this admission?: Yes (4) Brain tumor Is this a current diagnosis for this admission?: Yes Plan: This is a chronic diagnosis, details are unknown (5) Dysphagia Is this a current diagnosis for this admission?: Yes Plan: modified barium swallow - Inpatient Certification Based on my medical assessment, after consideration of the patient's comorbidities, presenting symptoms, or acuity I expect that the services needed warrant INPATIENT care.: Yes Medical Necessity: Need Close Monitoring Due to Risk of Patient Decompensation, Risk of Complication if Not Cared For in Hospital - Plan Summary Plan Summary: According to the family patient had his first brain tumor resection at age 9. He had a VPS in place until September last year according to the mother. She said he has not been back to seen the neurosurgeon since then. Patient lives at home with family. He was also noted to be hypoxemic today with oxygen saturation as low as 86%. There is no prior history of respiratory failure but this could very well be related to patient's brain injury or possibly obesity hypoventilation syndrome Patient was noted to also have a difficulty with the swallowing. Due to concerns about aspiration. Swallow is being planned for tomorrow to ensure that patient can be risk stratified and given the appropriate feeding status
--- NOTE | 2018-04-08 07:50 | Physician Advisory Note ---
Physician Advisor ProgressNote .: Pursuant to the plan for [facility], I have reviewed the medical record for this patient. Physician Advisor Statement: Nice documentation of concerns for aspiration, & of suspected causes of hypoxemia. ST unable to eval pt 04/07 due to pt undergoing other testing. Needing dysphagia eval - being kept on modified diet for now. Appears reasonable for change to Inpatient status. Also: could intermittent aspiration also be potential cause of the episodic hypoxemia? (& what do you think is most likely cause, by time of d/c?) - WOuld pt benefit from O2 protocol? Thanks! CK
[2018-04-08] MEDS: ASPIRIN/DIPYRIDAMOLE 25-200 MG 1 CAP.SR CPMP.12HR PO SCH (10:42)
[2018-04-08] MEDS: AMLODIPINE BESYLATE 5 MG TABLET PO SCH (10:43)
[2018-04-08] MEDS: ATORVASTATIN CALCIUM 20 MG TABLET PO SCH (10:43)
[2018-04-08] MEDS: SERTRALINE HCL 50 MG TABLET PO SCH (10:43)
[2018-04-08] MEDS: CETIRIZINE 10 MG TABLET PO SCH (10:43)
[2018-04-08] MEDS: ENOXAPARIN SODIUM INJ 40 MG/0.4 ML DISP.SYRIN SUBCUT SCH (10:58)
--- NOTE | 2018-04-08 11:15 | RADIOLOGY REPORT (SQ) ---
EXAM DESCRIPTION: PALMA SWALLOW COMPLETED DATE/TIME: 04/08/2018 9:53 am REASON FOR STUDY: diet recommendationsDysphagia, brain tumor resection COMPARISON: None. TECHNIQUE: Videofluoroscopic swallowing examination was performed in conjunction with speech patholo gy. Videofluoroscopic imaging was obtained and reviewed and these are the findings: RADIATION DOSE: 1.6 minutes of fluoroscopy was used. 1 images saved to PACS. LIMITATIONS: None FINDINGS: The patient was brought into the fluoro room and placed upright on a modified barium swall ow chair. The patient was then given multiple consistencies mixed with barium to swallow under live fluoroscopic video guidance. According to the Speech Pathologist there was no penetration or aspirat ion. IMPRESSION: NO EVIDENCE OF PENETRATION OR ASPIRATIONPLEASE SEE SPEECH PATHOLOGIST REPORT FOR OTHER F INDINGS AND RECOMMENDATIONS. COMMENT: Quality ID [id number]: Final reports for procedures using fluoroscopy that document radiation exp osure indices, or exposure time and number of fluorographic images (if radiation exposure indices are not available) TECHNICAL DOCUMENTATION: JOB ID: [id number] [employer]- All Rights Reserved Reading location - IP/workstation name: [email or web address]
--- NOTE | 2018-04-08 11:24 | ST Inp Modified Barium Swallow ---
Medical Diagnosis - Medical Diagnoses Medical Diagnosis Description & ICD-10 Code(s): brain tumor, dysphagia R13.10 ST Inpatient MBS - General Date: 04/08/18 Date of Onset: 04/07/18 - date of order - History History Obtained From: Other - EMR -: Medical - per EMR: patient admitted 04/06/18 with complaint of multiple falls and left facial droop. 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 New brain tumor has been noted, no surgery currently planned. Patient was seen for outpatient dysphagia clinicial evaluation on 08/15/17, at that time a MBSS was recommended, but never completed. Medications: Medications Reviewed Allergies: Refer to medical record - Subjective Current Nutritional Means: PO Current PO Diet: Mechanical- ground, Thickened liquids - nectar Current Symptoms: other - failed swallow screen Pain: Patient reports, 0/5 - Objective Assessment: Upright, Left Lateral - Food Trials Food Trials Used: Thin liquids, Pureed, Regular The Patient: Required Assist - Assessment Labial Function: Within Functional Limits Lingual Function: Within Functional Limits Mandibular Function: Within Functional Limits Dentition: Edentulous Velo-Pharyngeal Function: Unremarkable Laryngeal Function: clear voicing - Pharyngeal Stage Initiation of Pharyngeal Stage: Normal Decreased Laryngeal Elevation: No Reduced Pressure Generation: No Reduced Tongue Base Retraction: No Pre-Swallowing Pooling in Valleculae: None Pre-Swallowing Pooling in Pyriforms: None Multiple Swallows With: Cleared w/ Liquid Assist Post Swallow Residuals in Valleculae: Mild Post Swallow Residuals in Pyriforms: None Pahryngeal Stage Comments: Some residue of solids in valleculae, cleared with liquid wash. - Impression/Summary Laryngeal Penetration: No Tracheal Aspiration: no Patient Presents With: Oral stage dysphagia Risk of Aspiration: Minimal Risk of Nutritional Compromise: WNL - Recommendations Solid Diet Recommendations: Mechanical Soft, Ground Meat Liquid Diet Recommendations: Thin Strict Aspitarion Precautions: Yes Dysphagia Therapy with PHOTOGRAPHER LITHOGRAPHIC: No Recommended Techniques: Fully Upright During Meal, Small Bites and Sips, Alternate Bites/Sips - Time Total Time: 25 Total Timed Minutes: 25
[2018-04-08] MEDS ORDERED: POTASSIUM CHLORIDE 10 MEQ CAPSULE.ER PO ONE ×2 (14:00→16:18)
--- NOTE | 2018-04-08 14:17 | PDOC DISCHARGE SUMMARY ---
General - Admit/Disc Date/PCP Admission Date/Primary Care Provider: 04/06/18 14:51 CARRINGTON DOUGLAS PA-C Discharge Date: 04/08/18 - Discharge Diagnosis (1) Frequent falls Is this a current diagnosis for this admission?: Yes (2) Gait disturbance Is this a current diagnosis for this admission?: Yes (3) Morbid obesity with BMI of 45.0-49.9, adult Is this a current diagnosis for this admission?: Yes (4) Brain tumor Is this a current diagnosis for this admission?: Yes (5) Dysphagia Is this a current diagnosis for this admission?: Yes (6) Hypokalemia Is this a current diagnosis for this admission?: Yes - Additional Information Resuscitation Status: Do Not Resuscitate Discharge Diet: Regular Discharge Activity: Activity As Tolerated Home Medications: RX: Amlodipine Besylate [Norvasc 5 mg Tablet] 5 mg PO DAILY 04/07/18 RX: Aspirin/Dipyridamole [Aggrenox 25 mg/200 mg Capsule SA] 1 cap PO Q12 04/07/18 RX: Atorvastatin Calcium [Lipitor 20 mg Tablet] 20 mg PO QHS 04/07/18 RX: Sertraline HCl [Zoloft 50 mg Tablet] 50 mg PO DAILY 04/07/18 RX: Tramadol HCl [Ultram 50 mg Tablet] 50 mg PO Q6HP PRN 04/07/18 RX: Amlodipine Besylate [Norvasc 5 mg Tablet] 10 mg PO DAILY tablet 04/08/18 History of Present Illness Patient complains of: Patient was admitted with multiple falls and left facial droop. He apparently has a history of brain tumor and VPS shunt although details are unknown History of Present Illness: ROGELIO KEITH is a 47 year old male Hospital Course Hospital Course: Patient was admitted for further monitoring. He is at risk for continuing falls due to his underlying ataxia and brain tumor. He was noted to possibly have difficulty with swallowing and so a modified barium swallow was done with no significant findings of aspiration. Patient has been monitored and he has remained hemodynamically stable. He appears to be back at his baseline. At this time no further inpatient management is planned and so he has been discharged home for outpatient follow- up with his neurosurgeon and his other physicians. Physical Exam Vital Signs: Temp Pulse Resp BP Pulse Ox 98.2 F 84 18 113/80 95 04/08/18 11:31 04/08/18 11:31 04/08/18 11:31 04/08/18 11:31 04/08/18 11:31 Intake & Output 04/07/18 04/08/18 04/09/18 06:59 06:59 06:59 Intake Total 240 474 528 Output Total 230 Balance 10 474 528 Weight 127 kg 109.8 kg General appearance: PRESENT: no acute distress, obese, well-developed, well- nourished Head exam: PRESENT: atraumatic, normocephalic Eye exam: PRESENT: conjunctiva pink, EOMI, PERRLA. ABSENT: scleral icterus Ear exam: PRESENT: normal external ear exam Mouth exam: PRESENT: moist, tongue midline Neck exam: ABSENT: carotid bruit, JVD, lymphadenopathy, thyromegaly Respiratory exam: PRESENT: clear to auscultation carol. ABSENT: rales, rhonchi, wheezes Cardiovascular exam: PRESENT: RRR. ABSENT: diastolic murmur, rubs, systolic murmur Pulses: PRESENT: normal dorsalis pedis pul Vascular exam: PRESENT: normal capillary refill GI/Abdominal exam: PRESENT: normal bowel sounds, soft. ABSENT: distended, guarding, mass, organolmegaly, rebound, tenderness Rectal exam: PRESENT: deferred Extremities exam: PRESENT: full ROM. ABSENT: calf tenderness, clubbing, pedal edema Musculoskeletal exam: PRESENT: ambulatory - slightly unsteady Neurological exam: PRESENT: alert, awake, oriented to person, oriented to place, oriented to time, oriented to situation. ABSENT: motor sensory deficit Psychiatric exam: PRESENT: appropriate affect, normal mood. ABSENT: homicidal ideation, suicidal ideation Skin exam: PRESENT: dry, intact, warm. ABSENT: cyanosis, rash Results Laboratory Results: 04/07/18 06:23 04/07/18 06:23 04/06/18 04/06/18 04/06/18 11:08 11:08 18:05 Creatine Kinase 206 H 264 H CK-MB (CK-2) 2.24 Troponin I < 0.012 Impressions: Chest X-Ray 04/06/18 10:51 IMPRESSION: NO ACUTE RADIOGRAPHIC FINDING IN THE CHEST. Head CT 04/06/18 10:51 IMPRESSION: No acute intracranial process EVIDENCE OF ACUTE STROKE: NO. Modified Barium Swallow 04/08/18 00:00 IMPRESSION: NO EVIDENCE OF PENETRATION OR ASPIRATIONPLEASE SEE SPEECH PATHOLOGIST REPORT FOR OTHER FINDINGS AND RECOMMENDATIONS. Qualifiers - * PATIENT BEING DISCHARGED WITH ANY OF THE FOLLOWING DIAGNOSIS: No
[2018-04-08 17:06] VITALS: BP 119/78
== END 2018-04-08 17:30 | disposition home or self-care (01) | DRG 92 ==
LOC: ER 10:46 → INTOOBSV 14:51 → EH 14:51 → 3S 04-07 11:15 → OBSVTOIN 04-08 13:56
PROVIDERS: ADMIT Internal Medicine; ATTEND Internal Medicine
DX: R26.9 Unspecified abnormalities of gait and mobility (principal); Z68.42 Body mass index [BMI] 45.0-49.9, adult; I69.344 Monoplegia of lower limb following cerebral infarction affecting left non-dominant side; D49.6 Neoplasm of unspecified behavior of brain; E66.01 Morbid (severe) obesity due to excess calories; Z90.49 Acquired absence of other specified parts of digestive tract; Z66 Do not resuscitate; E78.5 Hyperlipidemia, unspecified; I10 Essential (primary) hypertension; R13.10 Dysphagia, unspecified; S01.21XA Laceration without foreign body of nose, initial encounter; W18.30XA Fall on same level, unspecified, initial encounter; Y92.239 Unspecified place in hospital as the place of occurrence of the external cause; Z83.3 Family history of diabetes mellitus; Z82.49 Family history of ischemic heart disease and other diseases of the circulatory system; Z83.438 Family history of other disorder of lipoprotein metabolism and other lipidemia; Z92.21 Personal history of antineoplastic chemotherapy; Z92.3 Personal history of irradiation; Z91.81 History of falling; E87.6 Hypokalemia; Z23 Encounter for immunization; Z79.899 Other long term (current) drug therapy
CPT/HCPCS: 36415; 70450; 71045; 74230; 80048; 80053; 82550; 82553; 83735; 84484; 85025; 85610; 85730; 90686; 93005; 93010; 95819; 99285; G0378; J1650

== ENCOUNTER 2018-06-25 11:10 | Emergency (ER) | payer MEDICARE, MEDICAID ==
--- NOTE | 2018-06-25 11:40 | ER Document Report ---
ED Fall - General Stated Complaint: FALL,HEAD INJURY Time Seen by Provider: 06/25/18 11:14 Primary Care Provider: CARRINGTON DOUGLAS PA-C [NO LOCAL MD] - Follow up as needed Mode of Arrival: Medic Information source: Patient, Emergency Med Personnel, [facility] Records Notes: This 48-year-old male patient with medical history complicated by multiple brain tumors at age 89 years old. He did have CVA with some left-sided weakness due to the tumor. He did have tumor excision surgery and a [employer] shunt. He has become morbidly obese, he is ataxic at baseline, and he falls frequently. He is brought to the emergency room today after suffering a fall at home and in route was found to have a temperature of 99.2. There is no history of loss of consciousness. He does have painful swelling to his forehead, his nose, his left anterior knee, and his right dorsal hand. TRAVEL OUTSIDE OF THE [place] IN LAST 30 DAYS: No - Related data Allergies/Adverse Reactions: GOLDY Inhibitors Allergy (Verified 06/25/18 11:13) angioedema bee stings Allergy (Uncoded 06/25/18 11:13) Past Medical History - General Information source: Patient, Emergency Med Personnel, [facility] Records - Social History Smoking Status: Never Smoker Cigarette use (# per day): No Chew tobacco use (# tins/day): No Smoking Education Provided: No Frequency of alcohol use: None Drug Abuse: None Occupation: Disabled Lives with: Parents Family History: CAD, DM, Hyperlipidemia, Hypertension Patient has suicidal ideation: No Patient has homicidal ideation: No - Past Medical History Cardiac Medical History: Reports: Hx Hypercholesterolemia, Hx Hypertension Neurological Medical History: Reports: 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, Other - Neurosurgery - Immunizations Hx Diphtheria, Pertussis, Tetanus Vaccination: Yes Review of Systems - Review of Systems Constitutional: No symptoms reported EENT: See HPI, Nose pain, Other - Forehead pain Cardiovascular: No symptoms reported Respiratory: No symptoms reported Gastrointestinal: No symptoms reported Musculoskeletal: See HPI, Other - Left anterior knee pain Skin: No symptoms reported Hematologic/Lymphatic: No symptoms reported Neurological/Psychological: Anxiety - Chronic ataxic gait disturbance, Weakness - Chronic left-sided weakness Physical Exam - Vital signs Vitals: Temp Pulse Resp BP Pulse Ox 98.0 F 98 18 145/92 H 94 06/25/18 11:06/25/18 11:06/25/18 11:06/25/18 11:06/25/18 11:29 - HEENT Head: Normocephalic, Other - Large tender hematoma over the mid forehead starting at the level of the eyebrows Eyes: Other - Right eye esotropic and slightly upward gaze with a pupil that is slightly dilated compared to the left side. Patient states that he does see out of both eyes simultaneously. Pupils: PERRL Nasal: Other - Nose shows contusion abrasion to the bridge of nose with swelling. There is no septal hematoma noted. There is no blood in the naris noted at this time. Neck: Normal - Respiratory Respiratory status: No respiratory distress Breath sounds: Normal - Cardiovascular Rhythm: Regular Heart sounds: Normal auscultation Murmur: No - Abdominal Inspection: Morbidly Obese Bowel sounds: Normal Tenderness: Nontender - Back Back: Normal - Extremities General upper extremity: Other - Right dorsal hand has hematoma developing over the distal second metacarpal General lower extremity: Other - Left anterior knee has a large hematoma over the patella - Neurological Neuro grossly intact: Yes - Psychological Associated symptoms: Normal affect, Normal mood - Skin Skin Temperature: Warm Skin Moisture: Dry Skin Color: Normal Course - Re-evaluation Re-evalutation: 06/25/18 13:22 The patient does have a walker and a wheelchair at home. Due to his severely ataxic gait and his morbid obesity, and knee immobilizer is not going to be placed as that would put him at high risk of falling. - Vital Signs Vital signs: Temp Pulse Resp BP Pulse Ox 98.0 F 98 18 145/92 H 94 06/25/18 11:29 06/25/18 11:06/25/18 11:06/25/18 11:06/25/18 11:29 - Diagnostic Test Radiology reviewed: Image reviewed, Reports reviewed - ET scan of the head shows large hematoma to the forehead. CT scan of the facial bones shows minimally displaced nasal bone fracture. Right hand x-ray shows thenar area soft tissue swelling without fracture. Left knee x-ray shows significant prepatellar with mild joint effusion, without fractures. Discharge - Discharge Clinical Impression: Frequent falls, Gait disturbance, Left leg weakness, Morbid obesity with BMI of 45.0-49.9, adult Forehead contusion Qualifiers: Encounter type: initial encounter Qualified Code(s): S00.83XA - Contusion of other part of head, initial encounter Nasal bone fracture Qualifiers: Encounter type: initial encounter Fracture type: closed Qualified Code(s): S02.2XXA - Fracture of nasal bones, initial encounter for closed fracture Contusion of left patella Qualifiers: Encounter type: initial encounter Qualified Code(s): S80.02XA - Contusion of left knee, initial encounter Contusion of right hand Qualifiers: Encounter type: initial encounter Qualified Code(s): S60.221A - Contusion of right hand, initial encounter Condition: Stable Disposition: HOME, SELF-CARE Additional Instructions: Fracture of the Nose You have a fractured nose. The examination shows no evidence that the nose needs to be "set" or operated on. However, the physician must recheck the nose once the swelling has decreased. The final decision about straightening of the bones or surgery can be made once the swelling resolves. This usually takes three to five days. Rest in a reclining chair. Cold pack the nose for the next 24 to 36 hours. Do not blow the nose. This may increase the swelling or cause further bleeding. If you have painful swelling inside the nose or exquisite tenderness when the tip of the nose is touched, you should call the doctor at once or return for re-evaluation. You should also contact the doctor if you develop fever, purulent nasal drainage, increasing pain in the face, or problems with vision. Contusions to Forehead, Left Knee and Right Hand: Your injury has resulted in a contusion -- a crushing of the deep tissues. No injury to important structures was detected during the physician's exam. Contusions vary in the amount of pain they cause, and in the length of time required for healing. Typically, the area will become bruised, and will remain painful to touch for two or three weeks. However, most patients are back to working and playing within a few days. After the initial period of rest and cold-packs, your symptoms (together with the doctor's recommendations) will determine how rapidly you can get back to full activity. Usually this means "do what feels okay, but don't do things that hurt." If re-examination was recommended, it's important to follow up as instructed. Call the doctor or return any time if pain increases, if swelling becomes severe, if you develop numbness or weakness in an injured extremity, or if any other alarming symptoms occur. Take the amoxicillin antibiotic as prescribed. Use ice packs on all the injured areas to help reduce swelling. Elevate your left knee is much as possible and limit walking as much as possible. Use your wheelchair to get around until the knee becomes more comfortable. Follow-up with your primary care provider and your orthopedic doctor next week for recheck. See them sooner if any problems. RETURN TO THE EMERGENCY ROOM IF ANY NEW OR WORSENING SYMPTOMS. Prescriptions: Amoxicillin Trihydrate [Amoxil 500 mg Capsule] 500 mg PO TID #15 capsule Referrals: CARRINGTON DOUGLAS PA-C [NO LOCAL MD] - Follow up as needed
--- NOTE | 2018-06-25 12:00 | RADIOLOGY REPORT (SQ) ---
EXAM DESCRIPTION: HAND RIGHT 3 VIEWS COMPLETED DATE/TIME: 06/25/2018 11:50 am REASON FOR STUDY: Fall onto face, lft knee, rght hand with swelling COMPARISON: None. EXAM PARAMETERS: NUMBER OF VIEWS: Three views. TECHNIQUE: AP, lateral and oblique radiographic images acquired of the right hand. LIMITATIONS: None. FINDINGS: MINERALIZATION: Normal. BONES: No acute fracture or dislocation. No worrisome bone lesions. JOINTS: No effusions. SOFT TISSUES: Swelling over the thenar eminence. No radiopaque foreign body. OTHER: No other significant finding. IMPRESSION: No evidence of acute bony abnormality. Soft tissue swelling of the thenar eminence. TECHNICAL DOCUMENTATION: JOB ID: [id number] [employer]- All Rights Reserved Reading location - IP/workstation name: [email or web address]
--- NOTE | 2018-06-25 12:01 | RADIOLOGY REPORT (SQ) ---
EXAM DESCRIPTION: KNEE LEFT 3 VIEWS COMPLETED DATE/TIME: 06/25/2018 11:50 am REASON FOR STUDY: Fall onto face, lft knee, rght hand with swelling COMPARISON: None. NUMBER OF VIEWS: Three views. TECHNIQUE: AP, lateral, and sunrise patella radiographic images acquired of the left knee. LIMITATIONS: None. FINDINGS: MINERALIZATION: Normal. BONES: No acute fracture or dislocation. No worrisome bone lesions. JOINT: Small joint effusion. Mild medial joint space loss. Minimal 3 compartment osteophytosis. SOFT TISSUES: Significant prepatellar soft tissue swelling. OTHER: No other significant finding. IMPRESSION: Significant prepatellar soft tissue swelling without acute bony abnormality. Small join t effusion. Minimal 3 compartment osteoarthritis. TECHNICAL DOCUMENTATION: JOB ID: [id number] [employer]- All Rights Reserved Reading location - IP/workstation name: [email or web address]
--- NOTE | 2018-06-25 12:19 | RADIOLOGY REPORT (SQ) ---
EXAM DESCRIPTION: CT HEAD WITHOUT; CT FACIAL AREA WITHOUT COMPLETED DATE/TIME: 06/25/2018 12:02 pm REASON FOR STUDY: Fall onto face, lft knee, rght hand with swelling COMPARISON: 04/06/2018 TECHNIQUE: Axial images acquired through the brain and facial bones without intravenous contrast. I mages reviewed with bone, brain and subdural windows. Additional sagittal and coronal reconstruction s were generated. Images stored on PACS. All CT scanners at this facility use dose modulation, iterative reconstruction, and/or weight based d osing when appropriate to reduce radiation dose to as low as reasonably achievable (ALARA). [facility]: Dose Right [facility]: CareDose [facility]: Dose Right [facility]: Teradose 4D [facility]: Smart Get Together RADIATION DOSE: CT Rad equipment meets quality standard of care and radiation dose reduction techniq ues were employed. CTDIvol: 53.2 mGy. DLP: 1044 mGy-cm.; CT Rad equipment meets quality standard of c are and radiation dose reduction techniques were employed. CTDIvol: 30.4 mGy. DLP: 581 mGy-cm. mGy. LIMITATIONS: None. FINDINGS: VENTRICLES: Normal size and contour. CEREBRUM: No masses. No hemorrhage. No midline shift. No evidence for acute infarction. Redemonstr ated lacunar infarction of the right caal radiata. CEREBELLUM: No masses. No hemorrhage. No alteration of density. No evidence for acute infarction. EXTRAAXIAL SPACES: No fluid collections. No masses. ORBITS AND GLOBE: No intra- or extraconal masses. Normal contour of globe without masses. CALVARIUM: No fracture. Unchanged appearance of a left pterional craniotomy with incomplete bony inc orporation of the temporal and sphenoid bones. FACIAL BONES: Minimally displaced fractures of the nasal bones. Nonacute fractures of the left zygo ma status post plate and screw fixation. PARANASAL SINUSES: No fluid or mucosal thickening. SOFT TISSUES: Large soft tissue hematoma of the forehead. OTHER: No other significant finding. IMPRESSION: 1. No acute intracranial pathology. Redemonstrated nonacute lacunar infarction of the right caal radiata. 2. Minimally displaced fractures of the nasal bones. 3. Nonacute fractures of the left zygoma status post plate and screw fixation. 4. Unchanged appearance of a left pterional craniotomy with incomplete bony incorporation of the tem poral and sphenoid bones. 5. Large soft tissue hematoma of the forehead. EVIDENCE OF ACUTE STROKE: NO. COMMENT: Quality ID # [id number]: Final reports with documentation of one or more dose reduction techniques (e.g., Automated exposure control, adjustment of the mA and/or kV according to patient size, use of iterative reconstruction technique) TECHNICAL DOCUMENTATION: JOB ID: [id number] [employer]- All Rights Reserved Reading location - IP/workstation name: [email or web address]
--- NOTE | 2018-06-25 12:19 | RADIOLOGY REPORT (SQ) ---
EXAM DESCRIPTION: CT HEAD WITHOUT; CT FACIAL AREA WITHOUT COMPLETED DATE/TIME: 06/25/2018 12:02 pm REASON FOR STUDY: Fall onto face, lft knee, rght hand with swelling COMPARISON: 04/06/2018 TECHNIQUE: Axial images acquired through the brain and facial bones without intravenous contrast. I mages reviewed with bone, brain and subdural windows. Additional sagittal and coronal reconstruction s were generated. Images stored on PACS. All CT scanners at this facility use dose modulation, iterative reconstruction, and/or weight based d osing when appropriate to reduce radiation dose to as low as reasonably achievable (ALARA). [facility]: Dose Right [facility]: CareDose [facility]: Dose Right [facility]: Teradose 4D [facility]: Smart [employer] RADIATION DOSE: CT Rad equipment meets quality standard of care and radiation dose reduction techniq ues were employed. CTDIvol: 53.2 mGy. DLP: 1044 mGy-cm.; CT Rad equipment meets quality standard of c are and radiation dose reduction techniques were employed. CTDIvol: 30.4 mGy. DLP: 581 mGy-cm. mGy. LIMITATIONS: None. FINDINGS: VENTRICLES: Normal size and contour. CEREBRUM: No masses. No hemorrhage. No midline shift. No evidence for acute infarction. Redemonstr ated lacunar infarction of the right caal radiata. CEREBELLUM: No masses. No hemorrhage. No alteration of density. No evidence for acute infarction. EXTRAAXIAL SPACES: No fluid collections. No masses. ORBITS AND GLOBE: No intra- or extraconal masses. Normal contour of globe without masses. CALVARIUM: No fracture. Unchanged appearance of a left pterional craniotomy with incomplete bony inc orporation of the temporal and sphenoid bones. FACIAL BONES: Minimally displaced fractures of the nasal bones. Nonacute fractures of the left zygo ma status post plate and screw fixation. PARANASAL SINUSES: No fluid or mucosal thickening. SOFT TISSUES: Large soft tissue hematoma of the forehead. OTHER: No other significant finding. IMPRESSION: 1. No acute intracranial pathology. Redemonstrated nonacute lacunar infarction of the right acal radiata. 2. Minimally displaced fractures of the nasal bones. 3. Nonacute fractures of the left zygoma status post plate and screw fixation. 4. Unchanged appearance of a left pterional craniotomy with incomplete bony incorporation of the tem poral and sphenoid bones. 5. Large soft tissue hematoma of the forehead. EVIDENCE OF ACUTE STROKE: NO. COMMENT: Quality ID # [id number]: Final reports with documentation of one or more dose reduction techniques (e.g., Automated exposure control, adjustment of the mA and/or kV according to patient size, use of iterative reconstruction technique) TECHNICAL DOCUMENTATION: JOB ID: [id number] [employer]- All Rights Reserved Reading location - IP/workstation name: [email or web address]
[2018-06-25 13:51] VITALS: BP 132/94
== END 2018-06-25 13:49 | disposition home or self-care (01) ==
LOC: ER 11:10
DX: S02.2XXA Fracture of nasal bones, initial encounter for closed fracture (principal); S00.83XA Contusion of other part of head, initial encounter; S60.221A Contusion of right hand, initial encounter; S80.02XA Contusion of left knee, initial encounter; M25.462 Effusion, left knee; W18.39XA Other fall on same level, initial encounter; Y93.89 Activity, other specified; Y92.002 Bathroom of unspecified non-institutional (private) residence as the place of occurrence of the external cause; I69.344 Monoplegia of lower limb following cerebral infarction affecting left non-dominant side; I10 Essential (primary) hypertension; E66.01 Morbid (severe) obesity due to excess calories; Z68.42 Body mass index [BMI] 45.0-49.9, adult; R26.0 Ataxic gait; R29.6 Repeated falls; Z98.2 Presence of cerebrospinal fluid drainage device; Z88.8 Allergy status to other drugs, medicaments and biological substances; Z91.030 Bee allergy status
CPT/HCPCS: 70450; 70486; 99284

== ENCOUNTER → 2018-07-09 | Outpatient (CLI) | payer MEDICARE, MEDICAID ==
[2018-07-09 13:14] LABS: ABSOLUTE EOSINOPHILS # (AUTO) 0.3 10^3/uL (0.0-0.6); ABSOLUTE LYMPHOCYTES (AUTO) 1.7 10^3/uL (0.5-4.7); ABSOLUTE MONOCYTES (AUTO) 0.5 10^3/uL (0.1-1.4); ABSOLUTE NEUT (AUTO) 4.6 10^3/uL (1.7-8.2); BASOPHILS % (AUTO) 0.6 % (0-2); EOSINOPHILS % (AUTO) 4.5 % (0-6); HEMATOCRIT 40.3 % (37.9-51.0); HEMOGLOBIN 14.2 g/dL (13.5-17.0); LYMPHOCYTES % (AUTO) 23.8 % (13-45); MEAN CORPUSCULAR HEMOGLOBIN 30.9 pg (27.0-33.4); MEAN CORPUSCULAR HGB CONC 35.2 g/dL (32.0-36.0); MEAN CORPUSCULAR VOLUME 88 fl (80-97); MONOCYTES % (AUTO) 7.4 % (3-13); PLATELET COUNT 275 10^3/uL (150-450); RED CELL DISTRIBUTION WIDTH 14.2 % (11.5-14.0); SEGMENTED NEUTROPHILS % (AUTO) 63.7 % (42-78); TOTAL CELLS COUNTED % (AUTO) 100 %; WHITE BLOOD COUNT 7.3 10^3/uL (4.0-10.5)
[2018-07-09 13:30] LABS: ALANINE AMINOTRANSFERASE 50 U/L (21-72); ALBUMIN 4.5 g/dL (3.5-5.0); ALKALINE PHOSPHATASE 92 U/L (38-126); ANION GAP 7 (5-19); ASPARTATE AMINO TRANSFERASE 44 U/L (17-59); BILIRUBIN,DIRECT 0.2 mg/dL (0.0-0.4); BILIRUBIN,TOTAL 0.9 mg/dL (0.2-1.3); BLOOD UREA NITROGEN 12 mg/dL (7-20); CALCIUM 9.7 mg/dL (8.4-10.2); CARBON DIOXIDE 33 mmol/L (22-30); CHLORIDE 104 mmol/L (98-107); CHOLESTEROL 159.18 mg/dL (0-200); GLUCOSE 104 mg/dL (75-110); POTASSIUM 3.5 mmol/L (3.6-5.0); SODIUM 143.5 mmol/L (137-145); TOTAL PROTEIN 8.2 g/dL (6.3-8.2); TRIGLYCERIDES 209 mg/dL (<150)
[2018-07-09 13:41] LABS: DIRECT LDL 84 mg/dL (<100)
[2018-07-09 13:50] LABS: VLDL CHOLESTEROL 41.8 mg/dL (10-31)
== END ==
LOC: OD 12:08
PROVIDERS: ATTEND Family Medicine Geriatric Medicine
DX: E78.5 Hyperlipidemia, unspecified (principal); J30.9 Allergic rhinitis, unspecified; Z79.899 Other long term (current) drug therapy
CPT/HCPCS: 36415; 80053; 80061; 84443; 85025

== ENCOUNTER → 2018-08-28 | Outpatient (CLI) | payer MEDICARE, MEDICAID ==
--- NOTE | 2018-08-28 10:23 | RADIOLOGY REPORT (SQ) ---
EXAM DESCRIPTION: CT HEAD WITHOUT COMPLETED DATE/TIME: 08/28/2018 10:06 am REASON FOR STUDY: S09.90XA UNSPECIFIED INJURY OF HEAD, INITIAL ENCOUNTER S09.90XA UNSPECIFIED INJUR Y OF HEAD, INITIAL ENCOUNTER COMPARISON: 06/25/2018 and 04/30/2015. TECHNIQUE: Axial images acquired through the brain without intravenous contrast. Images reviewed wi th bone, brain and subdural windows. Additional sagittal and coronal reconstructions were generated. Images stored on PACS. All CT scanners at this facility use dose modulation, iterative reconstruction, and/or weight based d osing when appropriate to reduce radiation dose to as low as reasonably achievable (ALARA). [facility]: Dose Right [facility]: CareDose [facility]: Dose Right [facility]: Teradose 4D [facility]: [employer] RADIATION DOSE: CT Rad equipment meets quality standard of care and radiation dose reduction techniq ues were employed. CTDIvol: 48.6 mGy. DLP: 929 mGy-cm. mGy. LIMITATIONS: None. FINDINGS: VENTRICLES: Normal size and contour. CEREBRUM: No masses. No hemorrhage. No midline shift. No evidence for acute infarction. Normal gra y/white matter differentiation. Stable old lacunar infarct on the right. Stable basal ganglia calci fications. . CEREBELLUM: No masses. No hemorrhage. No alteration of density. No evidence for acute infarction. EXTRAAXIAL SPACES: No fluid collections. No masses. ORBITS AND GLOBE: No intra- or extraconal masses. Normal contour of globe without masses. CALVARIUM: Old left craniotomy. No fracture. PARANASAL SINUSES: No fluid or mucosal thickening. SOFT TISSUES: No mass or hematoma. OTHER: No other significant finding. IMPRESSION: STABLE CHRONIC CHANGES. NO ACUTE FINDINGS. EVIDENCE OF ACUTE STROKE: NO. COMMENT: Quality ID # 436: Final reports with documentation of one or more dose reduction techniques (e.g., Automated exposure control, adjustment of the mA and/or kV according to patient size, use of iterative reconstruction technique) TECHNICAL DOCUMENTATION: JOB ID: [id number] [employer]- All Rights Reserved Reading location - IP/workstation name: [email or web address]
--- NOTE | 2018-08-28 11:01 | RADIOLOGY REPORT (SQ) ---
EXAM DESCRIPTION: RIBS RIGHT W/PA CHEST COMPLETED DATE/TIME: 08/28/2018 10:25 am REASON FOR STUDY: S20.211A RT RIB FX S09.90XA UNSPECIFIED INJURY OF HEAD, INITIAL ENCOUNTER COMPARISON: 04/06/2018. TECHNIQUE: Frontal view of the chest and additional views of the right ribs acquired. NUMBER OF VIEWS: Three view. LIMITATIONS: None. FINDINGS: FRONTAL CXR: No pneumothorax. No pleural effusion. No atelectasis or infiltrates. RIBS: Fractures of the anterolateral 8th and 9th ribs. No lytic or blastic bony lesions. OTHER: No other significant finding. IMPRESSION: FRACTURES OF THE ANTEROLATERAL 8TH AND 9TH RIBS. COMMENT: SITE OF TRAUMA/COMPLAINT MARKED/STAMP COMPLETED: YES. TECHNICAL DOCUMENTATION: JOB ID: [id number] [employer]- All Rights Reserved Reading location - IP/workstation name: [email or web address]
--- NOTE | 2018-08-28 11:03 | RADIOLOGY REPORT (SQ) ---
EXAM DESCRIPTION: HAND RIGHT 3 VIEWS COMPLETED DATE/TIME: 08/28/2018 10:25 am REASON FOR STUDY: S60.221D RT HAND FX S09.90XA UNSPECIFIED INJURY OF HEAD, INITIAL ENCOUNTER COMPARISON: 06/25/2018. EXAM PARAMETERS: NUMBER OF VIEWS: Three views. TECHNIQUE: AP, lateral and oblique radiographic images acquired of the right hand. LIMITATIONS: None. FINDINGS: MINERALIZATION: Normal. BONES: Intraarticular fracture at the base of the proximal phalanx of the 5th finger. JOINTS: No effusions. SOFT TISSUES: Soft tissue swelling. No foreign body. OTHER: No other significant finding. IMPRESSION: INTRAARTICULAR FRACTURE AT THE BASE OF THE PROXIMAL PHALANX OF THE RIGHT 5TH FINGER. TECHNICAL DOCUMENTATION: JOB ID: [id number] [employer]- All Rights Reserved Reading location - IP/workstation name: [email or web address]
== END ==
LOC: RAD 09:43
PROVIDERS: ATTEND Internal Medicine
DX: S09.90XA Unspecified injury of head, initial encounter (principal); X58.XXXA Exposure to other specified factors, initial encounter; Y93.9 Activity, unspecified; Y92.9 Unspecified place or not applicable
CPT/HCPCS: 70450

== ENCOUNTER → 2018-09-19 | Outpatient (CLI) | payer MEDICARE, MEDICAID ==
[2018-09-19 13:22] LABS: ALANINE AMINOTRANSFERASE 46 U/L (21-72); CHOLESTEROL 163.94 mg/dL (0-200); POTASSIUM 3.5 mmol/L (3.6-5.0); TRIGLYCERIDES 161 mg/dL (<150)
[2018-09-19 13:32] LABS: DIRECT LDL 95 mg/dL (<100)
[2018-09-19 13:36] LABS: VLDL CHOLESTEROL 32.2 mg/dL (10-31)
== END ==
LOC: OD 12:11
PROVIDERS: ATTEND Family Medicine Geriatric Medicine
DX: E78.5 Hyperlipidemia, unspecified (principal); E87.6 Hypokalemia; Z79.899 Other long term (current) drug therapy
CPT/HCPCS: 36415; 80061; 83735; 84132; 84460

== ENCOUNTER 2020-01-18 12:44 | Emergency (ER) | payer MEDICARE, MEDICAID ==
--- NOTE | 2020-01-18 13:36 | ER Document Report ---
ED Medical Screen (RME) - General Stated Complaint: EYE LACERATION Time Seen by Provider: 01/18/20 13:30 Primary Care Provider: CAITLIN OZUNA MD [Primary Care Provider] - Follow up as needed Information source: Patient Notes: Patient presents via EMS from [facility] with a laceration to left brow after a fall. Patient unable to give good history as to what happened. Transfer record does not provide any information as far as how the injury occurred. Patient's documentation with him does not have any history of his injury. Patient does have a documented history of CVA with left-sided weakness and a history of frequent falls. Patient denies any pain symptoms at this time. I have greeted and performed a rapid initial assessment of this patient. A comprehensive ED assessment and evaluation of the patient, analysis of test results and completion of the medical decision making process will be conducted by additional ED providers. TRAVEL OUTSIDE OF THE [place] IN LAST 30 DAYS: No - Related Data Allergies/Adverse Reactions: GOLDY Inhibitors Allergy (Verified 06/25/18 11:13) angioedema bee stings Allergy (Uncoded 06/25/18 11:13) Past Medical History - Past Medical History Cardiac Medical History: Reports: Hx Hypercholesterolemia, Hx Hypertension Neurological Medical History: Reports: 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 Endocrine Medical History: Denies: Hx Diabetes Mellitus Type 2, Hx Hypothyroidism Renal/ Medical History: Denies: Hx Peritoneal Dialysis Malignancy Medical History: Reports Hx Brain Cancer GI Medical History: Denies: Hx Cirrhosis, Hx Diverticulitis, Hx Gastroesophageal Reflux Disease Musculoskeltal Medical History: Denies Hx Fibromyalgia Skin Medical History: Denies Hx Eczema Infectious Medical History: Denies: Hx MRSA Past Surgical History: Reports: Hx Cholecystectomy, Hx Neurologic Surgery - Brain tumor removal, Hx [employer] Shunt, Other - Neurosurgery - Immunizations Hx Diphtheria, Pertussis, Tetanus Vaccination: Yes Physical Exam - Skin Skin irregularity: Laceration - Left forehead brow area laceration overlying hematoma Doctor's Discharge - Discharge Referrals: CAITLIN OZUNA MD [Primary Care Provider] - Follow up as needed
[2020-01-18 14:21] LABS: ABSOLUTE BASOPHILS # (AUTO) 0.1 10^3/uL (0.0-0.2); ABSOLUTE EOSINOPHILS # (AUTO) 0.2 10^3/uL (0.0-0.6); ABSOLUTE LYMPHOCYTES (AUTO) 1.7 10^3/uL (0.5-4.7); ABSOLUTE NEUT (AUTO) 7.8 10^3/uL (1.7-8.2); BASOPHILS % (AUTO) 0.6 % (0-2); EOSINOPHILS % (AUTO) 1.7 % (0-6); HEMATOCRIT 46.3 % (37.9-51.0); HEMOGLOBIN 16.4 g/dL (13.5-17.0); LYMPHOCYTES % (AUTO) 15.7 % (13-45); MEAN CORPUSCULAR HEMOGLOBIN 31.6 pg (27.0-33.4); MEAN CORPUSCULAR HGB CONC 35.4 g/dL (32.0-36.0); MEAN CORPUSCULAR VOLUME 89 fl (80-97); MONOCYTES % (AUTO) 9.2 % (3-13); PLATELET COUNT 279 10^3/uL (150-450); RED CELL DISTRIBUTION WIDTH 13.8 % (11.5-14.0); SEGMENTED NEUTROPHILS % (AUTO) 72.8 % (42-78); TOTAL CELLS COUNTED % (AUTO) 100 %; WHITE BLOOD COUNT 10.8 10^3/uL (4.0-10.5)
--- NOTE | 2020-01-18 14:42 | RADIOLOGY REPORT (SQ) ---
EXAM DESCRIPTION: CT CERVICAL SPINE WITHOUT; CT HEAD WITHOUT; CT FACIAL AREA WITHOUT IMAGES COMPLETED DATE/TIME: 01/18/2020 2:22 pm REASON FOR STUDY: fall, head injury COMPARISON: See below. TECHNIQUE: Axial images acquired through the brain, facial bones and cervical spine without intraven ous contrast. Images reviewed with brain, subdural, lung, soft tissue and bone windows. Reconstruct ed coronal and sagittal MPR images reviewed. Images stored on PACS. All CT scanners at this facility use dose modulation, iterative reconstruction, and/or weight based d osing when appropriate to reduce radiation dose to as low as reasonably achievable (ALARA). [facility]: Dose Right [facility]: CareDose [facility]: Dose Right [facility]: Teradose 4D [facility]: [employer] RADIATION DOSE: CT Rad equipment meets quality standard of care and radiation dose reduction techniq ues were employed. CTDIvol: 34.1 mGy. DLP: 626 mGy-cm.; CT Rad equipment meets quality standard of ca re and radiation dose reduction techniques were employed. CTDIvol: 53.2 mGy. DLP: 1124 mGy-cm.; CT Ra d equipment meets quality standard of care and radiation dose reduction techniques were employed. CTD Ivol: 30.4 mGy. DLP: 614 mGy-cm.mGy. LIMITATIONS: None. FINDINGS: Brain 2019 comparison Along the left cerebral peduncle, there is focal increased density measuring up to almost 9 mm (pleas e see axial image 17/39). Differential is artifact versus is a small area of parenchymal hemorrhage. There may be some regional low density edema. Other changes in the brain look chronic including ch ronic low density in the white matter of the right temporal lobe which is nonprogressive. Small vess el disease and deep periventricular white matter infarcts also look chronic. No extra-axial hemorrha ge. No acute skull fracture identified. Previous changes of left craniotomy and repair of left zygo matic fracture. No shift or hydrocephalus. Face 2019 prior. No evidence of acute facial fracture. Evidence of old left zygomatic fracture which has been treated . Paranasal sinuses are clear. Left periorbital soft tissue swelling and soft tissue preseptal stanley araceli. No globe injury, orbits otherwise intact. Cervical spine No priors to compare. Normal alighment. No fracture. Soft tissues normal, no pneumothorax. Multilevel disc space narrowing, degenerative change. IMPRESSION: 1. Suspect a small area of parenchymal hematoma in the left cerebral peduncle. 2. No acute facial fracture. Left periorbital soft tissue swelling/hematoma. Orbits intact. 3. No cervical spine fracture. Pertinent positive or negative findings of the imaging study reported as a CRITICAL EXAM to ALEX VAZQUEZ NP at14:36 on 01/18/2020. Category of Critical Exam: Suspected intracranial hemorrhage. TECHNICAL DOCUMENTATION: JOB ID: [id number] Quality ID # [id number]: Final reports with documentation of one or more dose reduction techniques (e.g., Au tomated exposure control, adjustment of the mA and/or kV according to patient size, use of iterative reconstruction technique) 2010 [employer]- All Rights Reserved Reading location - IP/workstation name: [email or web address]
[2020-01-18 14:48] LABS: ANION GAP 13 (5-19); BLOOD UREA NITROGEN 24 mg/dL (7-20); CALCIUM 9.6 mg/dL (8.4-10.2); CARBON DIOXIDE 24 mmol/L (22-30); CHLORIDE 103 mmol/L (98-107); GLUCOSE 107 mg/dL (75-110)
[2020-01-18] MEDS ORDERED: LIDOCAINE 1%/EPINEPHRINE INJ 20 ML VIAL INJ ONE (15:40)
--- NOTE | 2020-01-18 15:40 | ER Document Report ---
ED Fall - General Chief Complaint: Fall Stated Complaint: EYE LACERATION Time Seen by Provider: 01/18/20 13:30 Primary Care Provider: CAITLIN OZUNA MD [Primary Care Provider] - Follow up as needed Information source: Patient Notes: Patient is a 49-year-old male with a history of a CVA who presents emergency department after falling out of his wheelchair and hitting his head. Patient lives in [facility]. According to the [facility] chart, patient has a history of left hemiparesis and dysphagia. Also has a history of hypertension, hyperlipidemia, obesity, and seasonal allergies. Patient also has history of malignant neoplasm of the brain. Patient denies any pain. He is oriented to person and place. Patient's medical record does not show any blood thinners. TRAVEL OUTSIDE OF THE [place] IN LAST 30 DAYS: No - Related data Allergies/Adverse Reactions: GOLDY Inhibitors Allergy (Verified 01/18/20 16:21) angioedema bee stings Allergy (Uncoded 06/25/18 11:13) Past Medical History - General Information source: Patient - Social History Smoking Status: Unknown if Ever Smoked Family History: CAD, DM, Hyperlipidemia, Hypertension - Past Medical History Cardiac Medical History: Reports: Hx Hypercholesterolemia, Hx Hypertension Neurological Medical History: Reports: 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 Endocrine Medical History: Denies: Hx Diabetes Mellitus Type 2, Hx Hypothyroidism Renal/ Medical History: Denies: Hx Peritoneal Dialysis Malignancy Medical History: Reports Hx Brain Cancer GI Medical History: Denies: Hx Cirrhosis, Hx Diverticulitis, Hx Gastroesophageal Reflux Disease Musculoskeletal Medical History: Denies Hx Fibromyalgia Skin Medical History: Denies Hx Eczema Infectious Medical History: Denies: Hx MRSA Past Surgical History: Reports: Hx Cholecystectomy, Hx Neurologic Surgery - Brain tumor removal, Hx [employer] Shunt, Other - Neurosurgery - Immunizations Hx Diphtheria, Pertussis, Tetanus Vaccination: Yes Review of Systems - Review of Systems -: Yes ROS unobtainable due to patient's medical condition Physical Exam - Vital signs Vitals: Temp Pulse Resp BP Pulse Ox 98.1 F 105 H 20 107/66 94 01/18/20 13:33 01/18/20 13:33 01/18/20 13:33 01/18/20 13:33 01/18/20 13:33 - Notes Notes: PHYSICAL EXAMINATION: GENERAL: Appears chronically ill HEAD: Normocephalic. See skin assessment. EYES: PERRL, conjunctiva normal, all extraocular movements intact, sclera nonicteric ENT: Moist mucous membranes. NECK: Supple, no noticeable swelling, redness, rash. Normal range of motion. LUNGS: Equal breath sounds bilaterally and clear to auscultation. No wheezes rales or rhonchi. CARDIOVASCULAR: S1-S2, regular rate, regular rhythm. Radial pulses 2+, normal. ABDOMEN: Normoactive bowel sounds. Soft, nontender, no guarding, no rebound tenderness, and no masses palpated. EXTREMITIES: Left sided weakness; hx of CVA NEUROLOGICAL: Left sided weakness; hx of CVA PSYCH: Normal mood, normal affect. SKIN: Warm, dry. Laceration noted above left eyebrow. Normal skin turgor. Course - Re-evaluation Re-evalutation: 01/18/20 16:47 I spoke with [facility]. Spoke with Lukas, the trauma environmental management specialist. Will await a call back from Dr. Foy, the trauma surgeon. 01/18/20 17:[address] Foy, the trauma surgeon at [facility]. He would like me to speak with the neuroscience team. He states the likelyhood of him sustaining this type of bleed from a ground level fall would be highly unlikely. 01/18/20 18:[address] Fiore, from neurosurgery at [facility]. He states that he does not suggest any follow up imaging at this time. I spoke with my attending, Dr. Alfonso. She recommends getting a second opinion from [facility]. 01/18/20 18:19 I spoke with the transfer center at [facility]. Will await a call back from Neurosurgery or neurology. 01/18/20 18:40 I spoke with BLANK King from neurosurgery. He would like me to call the trauma team and he said it would be reasonable to have the patient transferred to [facility] for close follow up. 01/18/20 18:[address] Carlos Walton from the trauma team. Patient will be transferred to [facility] and admitted to the trauma service. 01/18/20 19:42 Flight crew is landing at this time. I evaluated the patient and he is stable for discharge. He was a little disoriented when I assessed him, because he was sleeping. I was able to reorient him after I talked to him. - Vital Signs Vital signs: Temp Pulse Resp BP Pulse Ox 98.1 F 105 H 13 131/101 H 96 01/18/20 13:33 01/18/20 13:33 01/18/20 19:01 01/18/20 19:00 01/18/20 18:01 - Laboratory Result Diagrams: 01/18/20 14:05 01/18/20 14:05 Laboratory results interpreted by me: 01/18/20 01/18/20 01/18/20 14:05 14:05 16:55 WBC 10.8 H APTT 38.8 H BUN 24 H - EKG Interpretation by Me Additional EKG results interpreted by me: 01/18/20 19:43 Sinus rhythm. Rate 86. IA 164; QRS 84; QT 380; QTc 455. No ST elevations or depressions noted. No acute change from prior EKG. Procedures - Laceration/Wound Repair Left forehead Wound length (cm): 4 Wound's Depth, Shape: Superficial Laceration pre-procedure: Sterile PPE donned, Sterile drapes applied Anesthetic type: 1% Lidocaine w/epi Volume Anesthetic (mLs): 4 Wound explored: Clean, No foreign body removed Irrigated w/ Saline (mLs): 50 Wound Repaired With: Sutures Suture Size/Type: 6:0, Prolene Number of Sutures: 4 Discharge - Discharge Clinical Impression: Intracranial bleed Fall Qualifiers: Encounter type: initial encounter Qualified Code(s): W19.XXXA - Unspecified fall, initial encounter Forehead laceration Qualifiers: Encounter type: initial encounter Qualified Code(s): S01.81XA - Laceration without foreign body of other part of head, initial encounter Condition: Stable Disposition: [facility] Admitting Provider: Dr. Walton Referrals: CAITLIN OZUNA MD [Primary Care Provider] - Follow up as needed
[2020-01-18 17:21] LABS: INTERNATIONAL RATION (INR) 1.06
--- NOTE | 2020-01-18 17:28 | EKG REPORT ---
SEVERITY:- ABNORMAL ECG - SINUS RHYTHM LEFT VENTRICULAR HYPERTROPHY : Confirmed by: Alexandru Bush MD 18-Jan-2020 17:27:57
[2020-01-18 17:29] LABS: PARTIAL THROMBOPLASTIN TIME 38.8 SEC (23.5-35.8)
[2020-01-18 19:16] VITALS: BP 131/101
== END 2020-01-18 19:54 | disposition short-term general hospital (02) ==
LOC: ER 12:44
PROC: 0HQ1XZZ Repair Face Skin, External Approach (ICD-10-PCS; principal; 2020-01-18)
DX: S01.81XA Laceration without foreign body of other part of head, initial encounter (principal); W05.0XXA Fall from non-moving wheelchair, initial encounter; Y92.129 Unspecified place in nursing home as the place of occurrence of the external cause; G81.90 Hemiplegia, unspecified affecting unspecified side; R13.10 Dysphagia, unspecified; I10 Essential (primary) hypertension; E78.5 Hyperlipidemia, unspecified; E66.9 Obesity, unspecified; Z86.73 Personal history of transient ischemic attack (TIA), and cerebral infarction without residual deficits; Z88.8 Allergy status to other drugs, medicaments and biological substances
CPT/HCPCS: 93005; 99285; 36415; 85025; 85610; 85730; 80048; 70450; 70486; 72125; 93010; 12013; J3490

== ENCOUNTER 2020-03-21 13:03 | Emergency (ER) | payer MEDICARE, MEDICAID ==
[2020-03-21] MEDS ORDERED: NORMAL SALINE 500 ML IV ONE (14:26)
--- NOTE | 2020-03-21 14:40 | ER Document Report ---
ED General - General Chief Complaint: Weakness Stated Complaint: weakness Time Seen by Provider: 03/21/20 14:07 Primary Care Provider: CAITLIN OZUNA MD [Primary Care Provider] - Follow up as needed Mode of Arrival: Stretcher Information source: Emergency Med Personnel, Outside Facility Records Cannot obtain history due to: Altered mental status Notes: Patient is a 41-year-old male who was sent in to the emergency room by his [facility]. He was sent secondary to the fact that he had had some slight altered changes in his normal baseline. 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 But my understanding was that the facility physician made rounds today and felt like patient was acting different than his baseline given he had a history of stroke that they wanted him checked out. Patient is not really verbal secondary to his stroke in the past. And he is left-sided weak according to the history of his previous stroke. Patient was diagnosed with Covid approximately 3 weeks ago. He has since recovered from that stent. TRAVEL OUTSIDE OF THE [place] IN LAST 30 DAYS: No - HPI Onset: This morning Onset/Duration: Gradual Quality of pain: No pain Severity: Mild Pain Level: 1 Associated symptoms: None Exacerbated by: Denies Relieved by: Denies Similar symptoms previously: No Recently seen / treated by doctor: Yes - Related Data Allergies/Adverse Reactions: GOLDY Inhibitors Allergy (Verified 03/21/20 13:48) angioedema bee stings Allergy (Uncoded 03/21/20 13:48) Past Medical History - General Information source: Emergency Med Personnel, Outside Facility Records Cannot obtain history due to: Altered mental status - Social History Smoking Status: Unknown if Ever Smoked Cigarette use (# per day): No Chew tobacco use (# tins/day): No Smoking Education Provided: No Frequency of alcohol use: None Drug Abuse: None Lives with: Prison Family History: CAD, DM, Hyperlipidemia, Hypertension - Past Medical History Cardiac Medical History: Reports: Hx Hypercholesterolemia, Hx Hypertension Neurological Medical History: Reports: 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, Other - Neurosurgery - Immunizations Hx Diphtheria, Pertussis, Tetanus Vaccination: Yes Review of Systems - Review of Systems Constitutional: No symptoms reported EENT: No symptoms reported Cardiovascular: No symptoms reported Respiratory: No symptoms reported Gastrointestinal: No symptoms reported Genitourinary: No symptoms reported Male Genitourinary: No symptoms reported Musculoskeletal: No symptoms reported Skin: No symptoms reported Hematologic/Lymphatic: No symptoms reported Neurological/Psychological: Weakness, Speech impairment - Unable to ascertain patient's NIH score secondary to history of stroke in the past and baseline unknown. Physical Exam - Vital signs Vitals: Resp Pulse Ox 11 L 97 03/21/20 13:35 03/21/20 13:35 Interpretation: Hypertensive, Other - Patient's vital signs were not captured but on arrival his heart rate was 74 respiratory rate of 12 temp 98.5 satting 97% blood pressure was 142/112. No: Febrile - Notes Notes: PHYSICAL EXAMINATION: GENERAL: Patient is a well-nourished well-developed 49-year-old male no apparent distress on examination. HEAD: Atraumatic, normocephalic. EYES: Examination patient's eyes show them to be equal and reactive bilaterally but he has a nonconjugate gaze meaning that both eyes are not on the equal planes at the same time. I did discuss this with the nursing that is baseline for him secondary to his past history of CVA. ENT: Nares patent, oropharynx clear without exudates. Moist mucous membranes. NECK: Normal range of motion, supple without lymphadenopathy LUNGS: Breath sounds clear to auscultation bilaterally and equal. No wheezes rales or rhonchi. HEART: Regular rate and rhythm without murmurs ABDOMEN: Auscultation patient's abdomen shows bowel sounds are present all 4 quads. Patient is nontender but moderately distended in all 4 quads. He has mild tympany noted in the upper quadrants when in a supine position. Musculoskeletal: Evaluation of patient's muscular status shows left-sided weakness in the left upper arm unable to raise the arm limited staff psychiatrist strength in the left hand and limited if any movement in the left lower extremity. Patient also does not phonate very well he makes guttural sounds but unable to attach ideas to the sounds.. NEUROLOGICAL: Neuro evaluation very difficult secondary patient's history of stroke and traumatic brain injury PSYCH: Normal mood, normal affect. SKIN: Warm, Dry, normal turgor, no rashes or lesions noted. Course - Re-evaluation Re-evalutation: 03/21/20 14:40 Given patient has a past medical history is pertinent for stroke as well as for a significant history for the brain tumor first discovered 9 years old which was resected and then one was found recently in the past year or so which was causing him to fall more often. Given that he had a hard time arousing the patient in the room when I walked in patient was sound asleep in a semi-Fowlers position and I noted that are respiratory rate alarm kept going off so before attempted to wake patient up I monitored him for about 10 minutes and noted several bouts of apnea. In timing these patient was having anywhere from 30- 42nd bouts of apnea and is startle himself awake. Once he finally woke up the patient was more interactive. Since I am unsure of patient's baseline mentation I contacted [facility] and talk to his nurse Tiana. She informed me that patient had been seen by the [facility] physician today and that he also stays in the same room with his mother at the facility and she noticed that this morning that he was somewhat not his baseline self. According to Tiana patient was more sleepy. She states that in the middle of conversation with him while they were talking to him patient would just doze off which is not his normal. Besides that there was little else she could tell me about his baseline. Performed a limited history I think we are going to work patient up with a CT of head along with labs and urine to make sure there is no other findings. I have mentioned the possibility of sleep apnea to the Tiana his nurse she was not at the desk so she could not tell me if this is part of his history but she did not believe so. 03/21/20 14:45 03/21/20 18:48 After patient got some sleep today without us doing hardly anything he received bonded and rebounded well he became more alert watching TV no other complications. His CT report came back relatively normal for him labs look good waiting on a chest x-ray to make sure nothing else is going on. As stated earlier and I talked to Dr. Brandt about this I had gone into the room and as stated above and patient went apneic for approximately 30 to 45 seconds his CO2 in his bloodstream was 34 on the draw so he may be retaining some CO2 and having little hypercarbia. This may be adding to his somnolence. I also discussed this with Tiana his nurse and felt that she may mention this to the residential physician 03/21/20 19:31 Patient's chest x-ray came back negative. His influenza came back negative currently we are going go ahead and send patient back to [facility] much improved over when he came here to the emergency room. - Vital Signs Vital signs: Temp Pulse Resp BP Pulse Ox 98.2 F 15 161/106 H 92 03/21/20 13:47 03/21/20 18:30 03/21/20 18:30 03/21/20 18:30 - Laboratory Results Result Diagrams: 03/21/20 13:25 03/21/20 13:25 Laboratory Results Interpreted: 03/21/20 03/21/20 13:25 16:39 Carbon Dioxide 35 H Urine Urobilinogen 2.0 H Urine Ascorbic Acid 20 H Critical Laboratory Results Reviewed: No Critical Results - Radiology Results Critical Radiology Results Reviewed: No Critical Results Discharge - Discharge Clinical Impression: Somnolence, daytime, Generalized weakness Condition: Stable Disposition: HOME, SELF-CARE Instructions: Weakness ([facility]) Additional Instructions: As stated much earlier in cessation of bleeding possibly patient is experiencing new onset sleep apnea highly recommend a study down the line. He has been awake and interactive ever since he got some sleep earlier today. Labs appear normal. Chest x-ray is negative at this time I feel it is okay to send him back to the facility to continue his normal activities. I did discuss the case with Dr. Brandt and he is in agreement. CT head did not show any acute findings. Forms: Elevated Blood Pressure Referrals: CAITLIN OZUNA MD [Primary Care Provider] - Follow up as needed
[2020-03-21 16:58] LABS: ABSOLUTE EOSINOPHILS # (AUTO) 0.3 10^3/uL (0.0-0.6); ABSOLUTE LYMPHOCYTES (AUTO) 1.6 10^3/uL (0.5-4.7); ABSOLUTE MONOCYTES (AUTO) 0.4 10^3/uL (0.1-1.4); ABSOLUTE NEUT (AUTO) 2.6 10^3/uL (1.7-8.2); BASOPHILS % (AUTO) 0.4 % (0-2); HEMATOCRIT 40.2 % (37.9-51.0); HEMOGLOBIN 13.9 g/dL (13.5-17.0); LYMPHOCYTES % (AUTO) 32.5 % (13-45); MEAN CORPUSCULAR HEMOGLOBIN 30.4 pg (27.0-33.4); MEAN CORPUSCULAR HGB CONC 34.5 g/dL (32.0-36.0); MEAN CORPUSCULAR VOLUME 88 fl (80-97); MONOCYTES % (AUTO) 8.8 % (3-13); PLATELET COUNT 206 10^3/uL (150-450); RED BLOOD COUNT 4.56 10^6/uL (4.35-5.55); RED CELL DISTRIBUTION WIDTH 13.4 % (11.5-14.0); SEGMENTED NEUTROPHILS % (AUTO) 52.3 % (42-78); TOTAL CELLS COUNTED % (AUTO) 100 %
[2020-03-21 17:04] LABS: AMORPHOUS SEDIMENT,URINE 1+ /HPF; APPEARANCE,URINE SLIGHTLY-CLOUDY; BILIRUBIN,URINE NEGATIVE (NEGATIVE); COLOR,URINE YELLOW; GLUCOSE, URINE NEGATIVE (NEGATIVE); KETONES,URINE NEGATIVE (NEGATIVE); LEUKOCYTE ESTERASE,URINE NEGATIVE (NEGATIVE); NITRITE,URINE NEGATIVE (NEGATIVE); PROTEIN,URINE NEGATIVE (NEGATIVE); URINE SPECIFIC GRAVITY 1.021
--- NOTE | 2020-03-21 17:08 | RADIOLOGY REPORT (SQ) ---
EXAM DESCRIPTION: CT HEAD WITHOUT IMAGES COMPLETED DATE/TIME: 03/21/2020 4:53 pm REASON FOR STUDY: altered mental status COMPARISON: 01/18/2020 TECHNIQUE: Axial images acquired through the brain without intravenous contrast. Images reviewed wi th bone, brain and subdural windows. Additional sagittal and coronal reconstructions were generated. Images stored on PACS. All CT scanners at this facility use dose modulation, iterative reconstruction, and/or weight based d osing when appropriate to reduce radiation dose to as low as reasonably achievable (ALARA). [facility]: Dose Right [facility]: CareDose [facility]: Dose Right [facility]: Teradose 4D [facility]: Smart [employer] RADIATION DOSE: CT Rad equipment meets quality standard of care and radiation dose reduction techniq ues were employed. CTDIvol: 53.2 mGy. DLP: 991 mGy-cm.mGy. LIMITATIONS: None. FINDINGS: VENTRICLES: Prominent. CEREBRUM: No masses. No hemorrhage. No midline shift. Areas of low density in the white matter mos t likely due to chronic micro-vascular ischemic change. More focal areas of hypoattenuation within t he right frontal periventricular white matter and bilateral basal ganglia compatible with prior lacun ar infarcts. No evidence of acute large vascular territory infarct. Unchanged area of hyperattenuat ion within the bilateral basal ganglia compatible with mineralization. Additional more focal area of hyperattenuation within the left cerebral peduncle, likely calcifications, stable. CEREBELLUM: No masses. No hemorrhage. No alteration of density. No evidence for acute infarction. EXTRAAXIAL SPACES: Age-related involutional change. No fluid collections. No masses. ORBITS AND GLOBE: No intra- or extraconal masses. Normal contour of globe without masses. CALVARIUM: No fracture. No suspicious osseous lesions. Evidence of prior left frontoparietal cranio cy. Evidence of prior right frontal starr hole. Surgical hardware along the left zygomatic arch. . PARANASAL SINUSES: No fluid or mucosal thickening. SOFT TISSUES: Focal area of soft tissue swelling and subcutaneous stranding along the right frontal OTHER: No other significant finding. IMPRESSION: 1. No evidence of acute intracranial process. Mild soft tissue swelling and subcutaneo us edema along the right frontal calvarium. 2. Stable multiple chronic additional findings as above with evidence of prior lacunar infarcts and left frontoparietal craniotomy. EVIDENCE OF ACUTE STROKE: NO. TECHNICAL DOCUMENTATION: JOB ID: [id number] Quality ID # [id number]: Final reports with documentation of one or more dose reduction techniques (e.g., Au tomated exposure control, adjustment of the mA and/or kV according to patient size, use of iterative reconstruction technique) 2010 [employer]- All Rights Reserved Reading location - IP/workstation name: [email or web address]
[2020-03-21 17:24] LABS: ALBUMIN 4.1 g/dL (3.5-5.0); ALKALINE PHOSPHATASE 80 U/L (38-126); ASPARTATE AMINO TRANSFERASE 31 U/L (17-59); BILIRUBIN,DIRECT 0.1 mg/dL (0.0-0.4); BILIRUBIN,TOTAL 0.7 mg/dL (0.2-1.3); BLOOD UREA NITROGEN 15 mg/dL (7-20); CALCIUM 9.3 mg/dL (8.4-10.2); GLUCOSE 101 mg/dL (75-110); POTASSIUM 3.9 mmol/L (3.6-5.0); TOTAL PROTEIN 7.9 g/dL (6.3-8.2)
[2020-03-21 17:39] LABS: ANION GAP 5 (5-19); CARBON DIOXIDE 35 mmol/L (22-30); CHLORIDE 104 mmol/L (98-107)
--- NOTE | 2020-03-21 19:04 | RADIOLOGY REPORT (SQ) ---
EXAM DESCRIPTION: CHEST SINGLE VIEW IMAGES COMPLETED DATE/TIME: 03/21/2020 6:15 pm REASON FOR STUDY: altered MS COMPARISON: 04/06/2018 EXAM PARAMETERS: NUMBER OF VIEWS: One view. TECHNIQUE: Single frontal radiographic view of the chest acquired. RADIATION DOSE: NA LIMITATIONS: None. FINDINGS: LUNGS AND PLEURA: Relatively low lung volumes. No infiltrate, effusion, or mass. MEDIASTINUM AND HILAR STRUCTURES: No masses. Contour normal. HEART AND VASCULAR STRUCTURES: Heart normal in size. Normal vasculature. BONES: No acute findings. HARDWARE: None in the chest. OTHER: No other significant finding. IMPRESSION: Low lung volumes. No acute findings in the chest. TECHNICAL DOCUMENTATION: JOB ID: [id number] 2010 [employer]- All Rights Reserved Reading location - IP/workstation name: [email or web address]
[2020-03-21 19:30] LABS: A TYPE INFLUENZA AG NEGATIVE (NEGATIVE); B INFLUENZA AG NEGATIVE (NEGATIVE)
[2020-03-21 22:04] VITALS: BP 161/111
== END 2020-03-21 22:17 | disposition home or self-care (01) ==
LOC: ER 13:03
DX: R40.0 Somnolence (principal); R53.1 Weakness; Z86.73 Personal history of transient ischemic attack (TIA), and cerebral infarction without residual deficits; I10 Essential (primary) hypertension; Z88.8 Allergy status to other drugs, medicaments and biological substances; Z91.81 History of falling
CPT/HCPCS: 99285; 96360; 51701; 36415; 87086; 85025; 80053; 81001; 87804; 71045; 70450; U0003; J7040; C9803; 87635